=== PATIENT | female | born 1955 | race Caucasian/White ===

== ENCOUNTER 2023-12-16 07:18 | Outpatient (CLI) | payer MEDICARE, SELFPAY ==
--- OUTSIDE RECORDS SUMMARY | 2023-12-16 07:21 | XMS_ITS | Referral Summary ---
Author Name Unknown Organization [facility] Address [address] [facility] [place] [address] Care Team Providers Care County Engineer Name Role Phone Rodolfo Pickett PCA Primary Care Provider [phone] Allergies Active Allergy Reactions Criticality Noted Date Comments No Clinical Screening - See Comments 08/01/2015 [facility] thinks it was the thiamine in the relacore that caused hives Medications Medication Sig Dispensed Refills Start Date End Date Status LEVOTHYROXINE SODIUM PO Take 75 mcg by mouth daily 0 Active citalopram (CELEXA) 20 MG tablet Take 20 mg by mouth daily 0 Active Thiamine HCl (VITAMIN B-1) 50 MG tablet Take 50 mg by mouth daily 0 Active cyclobenzaprine (FLEXERIL) 10 MG tablet Take 10 mg by mouth 3 times daily as needed for muscle spasms 0 Active omeprazole (PRILOSEC) 20 MG capsule Take 20 mg by mouth every other day 0 Active calcium-vitamin D (CALTRATE) 600-400 MG-UNIT per tablet Take 1 tablet by mouth daily 0 Active LORazepam (ATIVAN) 0.5 MG tablet Take 0.5 mg by mouth every 6 hours as needed for anxiety 0 Active amLODIPine (NORVASC) 5 MG tabletIndications:HTN (hypertension) Take 1 tablet (5 mg) by mouth At Bedtime 30 tablet 1 08/09/2015 Active traZODone (DESYREL) 100 MG tablet Take 150 mg by mouth At Bedtime 0 Active budesonide-formoterol (SYMBICORT) 160-4.5 MCG/ACT Inhaler Inhale 2 puffs into the lungs 2 times daily 0 Active cetirizine (ZYRTEC) 10 MG tablet Take 10 mg by mouth every evening 0 Active folic acid (FOLVITE) 1 MG tablet Take 1 mg by mouth daily 0 Active lisinopril-hydrochlor othiazide (ZESTORETIC) 20-12.5 MG tablet Take 1 tablet by mouth daily 0 Active oxybutynin ER (DITROPAN XL) 15 MG 24 hr tablet Take 15 mg by mouth daily 0 Active pregabalin (LYRICA) 75 MG capsule Take 75 mg by mouth 3 times daily 0 Active buPROPion (WELLBUTRIN XL) 300 MG 24 hr tablet Take 300 mg by mouth every morning 0 Active Active Problems Problem Noted Date Diagnosed Date Delirium 02/01/2022 C. difficile colitis 08/09/2015 Acute renal failure (H24) 07/31/2015 CARDIOVASCULAR SCREENING; LDL GOAL LESS THAN 160 01/10/2010 Migraine 04/12/2003 Overview: Problem list name updated by automated process. Provider to review Disturbance in sleep behavior 04/12/2003 Overview: Problem list name updated by automated process. 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 Provider to review Esophageal reflux 04/12/2003 Immunizations Name Administration Dates Next Due Mantoux Tuberculin Skin Test 08/02/2015 TD,PF 7+ (Tenivac) 01/14/2005,12/01/1993 Social History Tobacco Use Types Packs/Day Years Used Date Smoking Tobacco: Former Cigarettes 1 20 Q uit: 12/01/1997 Alcohol Use Standard Drinks/Week Comments Yes 0 (1 standard drink = 0.6 oz pure alcohol) 2-3 8oz glasses of vodka per day Adolescent Education Answer Date Record ed Getting School Help Needed Not on file 08/31 Sex and Gender Information Value Date Recorded Sex Assigned at Not on file Gender Identity Not on file Sexual Orientation Not on file Last Filed Vital Signs Vital Sign Reading Time Taken Comments Blood Pressure 129/77 02/03/2022 10:30 AM LOGISTICS RESEARCH ENGINEER Pulse 58 02/03/2022 7:36 AM LOGISTICS RESEARCH ENGINEER Temperature 36.5 ??C (97.7 ??F) 02/03/2022 7:36 AM CS T Respiratory Rate 16 02/03/2022 7:36 AM LOGISTICS RESEARCH ENGINEER Oxygen Saturation 97% 02/03/2022 7:36 AM LOGISTICS RESEARCH ENGINEER Inhaled Oxygen Concentration - - Weight 63.3 kg (139 lb 9.6 oz) 02/01/2022 6:14 P M LOGISTICS RESEARCH ENGINEER Height 154.9 cm (5' 1) 02/01/2022 6:14 PM LOGISTICS RESEARCH ENGINEER Body Mass Index 26.38 02/01/2022 6:14 PM LOGISTICS RESEARCH ENGINEER Plan of Treatment Not on file Advance Directives For more information, please contact: [phone] Latest Code Status on File Code Status Date Activated Date Inactivated Comments Full Code 02/01/2022 6:14 PM 02/03/2022 2:42 PM All bas ic and advanced life-sustaining interventions are performed as appropriate Question Answer Comments Code status determined by: Discussion with patient/ legal decision maker Code Status History Code Status Date Activated Date Inactivated Comments Full Code 08/09/2015 12:02 PM 02/01/2022 10:51 AM Full Code 07/31/2015 7:49 PM 08/09/2015 12:02 PM Care Teams County Engineer Relationship Specialty Start Date End Date Rodolfo Pickett NP PCP - General Nurse Practitioner 02/13/15
--- OUTSIDE RECORDS SUMMARY | 2023-12-16 07:21 | XMS_ITS | Encounter Summary ---
Author Name Unknown Organization [facility] Address [address], [place] [address] Care Team Providers Care Research Physicist Name Role Phone Annette Wakefield PA-C Primary Care Provider [phone] Reason for Visit * Reason Comments Urinary Frequency Encounter Details Date Type Department Care Team Description 03/13/2023 4:20 PM CDT Office Visit [facility] [address] [place] [address] Anamaria Atkinson, SUPERVISOR COREMAKER, FOAM FABRICATOR [address] [place], [place] [id number] Dysuria Social History Tobacco Use Types Packs/Day Years Used Date Smoking Tobacco: Former Cigarettes 10 0 12/01/1984 - 12/01/1994 Smokeless Tobacco: Never Alcohol Use Standard Drinks/Week Comments Yes 11 (1 standard drink = 0.6 oz pu re alcohol) Sex and Gender Information Value Date Recorded Sex Assigned at Not on file Gender Identity Not on file Sexual Orientation Not on file documented as of this encounter Last Filed Vital Signs Vital Sign Reading Time Taken Comments Blood Pressure 144/81 03/13/2023 3:54 PM CDT Pulse 77 03/13/2023 3:54 PM CDT Temperature 37.1 ??C (98.8 ??F) 03/13/2023 3:54 PM CD T Respiratory Rate 16 03/13/2023 3:54 PM CDT Oxygen Saturation 100% 03/13/2023 3:54 PM CDT Inhaled Oxygen Concentration - - Weight - - Height - - Body Mass Index - - documented in this encounter Progress Notes * DemetrioAnamaria Barrera, TALAT, GREGORIO - 03/13/2023 4:20 PM CDT SUBJECTIVE: Ella Wakefield is a 67 y.o.female who presents to for evaluation of UTI symptoms. The patient states that yesterday she started having dysuria and urinary frequency consistent with past UTIs. She last had a UTI approximately 4 months ago. She denies any fevers, hematuria, nausea vomiting, or newflank pain. Social/Family History, Past Medical/Surgical History, Medications and Allergies have all been reviewed in [facility]. Social History Tobacco Use Smoking status: Former Years: 10.00 Types: Cigarettes Quit date: 12/01/1994 Years since quittin.2 Smokeless tobacco: Never Substance Use Topics Alcohol use: Yes Alcohol/week: 11.0 standard drinks Types: 10 Glasses of wine, 1 Standard drinks or equivalent per week OBJECTIVE: Vital Signs: BP (!) 144/81 (BP Location: Left Arm, BP Cuff Size: Regular - Long) Pulse 77 Temp 37.1 ??C (98.8 ??F) (Oral) Resp 16 SpO2 100% . General: Well developed and nourished. HEENT: Normocephalic. Conjunctiva normal Neck: Supple. Normal ROM. Musculoskeletal: Normal ROM Neurological: Alert and oriented x3. Skin: Warm and dry Psychiatric: Normal mood and affect. Medical Decision Making : Ella Wakefield is a 67 y.o. female presents with symptoms concerning for a urinary tract infection. Urinalysis shows results consistent with UTI. There has been no fever, back/flank pain or significant abdominal pain and there is no clinical evidence/copncern for pyelonephritis or intraabdominal pathology. The patient is appropriate for outpatient management at this timeand will be started on a course of antibiotics. Discharge instructions were reviewed; the patient will return for reevaluation of increasing pain, vomiting, fever, or inability to tolerate the oral antibiotic. Follow up with primary physician is indicated if not improving in 2-3 days. ASSESSMENT: 1. Dysuria LABS: Results for orders placed or performed in visit on 03/13/23 UA with Microscopic: Clean Catch Specimen: Clean Catch; Urine Result Value Ref Range Urine Color Straw Urine Clarity Clear Clear Specific Mingus, Urine 1.010 1.005 - 1.030 PH Urine 7.5 5.0 - 8.0 Protein, Urine Qual (mg/dL) Negative Neg/Trace Glucose Urine Qual (mg/dL) Negative Negative Ketones, Urine (mg/dL) Negative Negative Urobilinogen, Urine (EU/dL) 0.2 <2.0 Bilirubin Urine Negative Negative Blood, Urine Trace Neg/Trace Nitrite Urine Negative Negative Leukocyte Est. Large (A) Negative Red Blood Cells 0-3 0 - 3 /HPF White Blood Cells 51-100 (A) 0 - 5 /HPF Bacteria Few (A) None Seen /HPF Squamous Epithelial Cells Few None Seen, Occasional, Few /HPF Urine Source Clean Catch The patient was discharged ambulatory and in stable condition. Medications Prescribed this Visit Disp Refills Start End cephalexin (KEFLEX) 500 MG capsule 14 Capsule 0 03/13/2023 03/20/2023 Take 1 Capsule (500 mg) by mouth two times a day for 7 days. Oral Discharge Instructions None documented in this encounter Nursing Notes * Brittani Goldman RN - 03/13/2023 4:20 PM CDT Pt reports dysuria, urinary frequency, urgency, cloudy urine starting .yesterday. Denies hematuria;no worsening back pain. documented in this encounter Plan of Treatment Not on file documented as of this encounter Procedures Procedure Name Priority Date/Time Associated Diagnosis Comments URINE CULTURE Routine 03/13/2023 3:45 PM CDT Dysuria UA WITH MICROSCOPIC STAT 03/13/2023 3 :45 PM CDT Dysuria documented in this encounter Results * (ABNORMAL) Urine Culture - Collect in Clinic Today (03/13/2023 3:45 PM CDT) Urine Culture Growth(A) 03/15/2023 9:46 AM CDT [facility] Urine Culture 50,000 - 100,000 CFU/mL Multiple Bacterial Morphotypes 03/15/2023 9:46 AM T [facility] Urine URINE SPECIMEN COLLECTION, CLEAN CATCH / Unknown Non-blood Collection / Unknown 03/13/2023 3:45 PM CDT 03/13/2023 3:53 PM CDT Tonio Garcia [facility] LAB_[id number] [place] [address] * (ABNORMAL) UA with Microscopic: Clean Catch (03/13/2023 3:45 PM CDT) Urine Color Straw 03/13/2023 4:13 PM [facility] Urine Clarity Clear Clear 03/13/2023 4:13 PM [facility] Specific Mingus, Urine 1.010 1.005 - 1.030 03/13/2023 4:13 PM [facility] PH Urine 7.5 5.0 - 8.0 03/13/2023 4:13 PM [facility] Protein, Urine Qual (mg/dL) Negative Neg/Trace 03/13/2023 4:13 PM [facility] Glucose Urine Qual (mg/dL) Negative Negative 03/13/2023 4:13 PM [facility] Ketones, Urine (mg/dL) Negative Negative 03/13/2023 4:13 PM [facility] Urobilinogen, Urine (EU/dL) 0.2 <2.0 03/13/2023 4:13 PM [facility] Bilirubin Urine Negative Negative 03/13/2023 4:13 PM [facility] Blood, Urine Trace Neg/Trace 03/13/2023 4:13 PM [facility] Nitrite Urine Negative Negative 03/13/2023 4:13 PM [facility] Leukocyte Est. Large(A) Negative 03/13/2023 4:13 PM [facility] Red Blood Cells 0-3 0 - 3 /HPF 03/13/2023 4:13 PM [facility] White Blood Cells 51-100(A) 0 - 5 /HPF 03/13/2023 4:13 PM [facility] Bacteria Few(A) None Seen /HPF 03/13/2023 4:13 PM CDT [facility] Squamous Epithelial Cells Few None Seen, Occasional, Few /HPF 03/13/2023 4:13 PM CDT [facility] Urine Source Clean Catch 03/13/2023 4:13 PM CDT [facility] Urine URINE SPECIMEN COLLECTION, CLEAN CATCH / Unknown Non-blood Collection / Unknown 03/13/2023 3:45 PM CDT 03/13/2023 3:53 PM CDT Tonio ERNANDEZ [facility] [address] [place] [address], [facility] [phone] documented in this encounter Visit Diagnoses Diagnosis Dysuria documented in this encounter Care Teams Research Physicist Relationship Specialty Start Date End Date Annette Wakefield PA-C PCP - General Physician Art Display Maker 09/12/21 06/19/23 documented as of this encounter
--- OUTSIDE RECORDS SUMMARY | 2023-12-16 07:21 | XMS_ITS | Encounter Summary ---
Author Name Unknown Organization [facility] Address [address], [place] [address] Care Team Providers Care Chocolate Coater Name Role Phone Annette Wakefield PA-C Primary Care Provider Encounter Details Date Type Department Care Team Description 06/12/2023 1:00 PM CDT Lab Visit [facility] [address] [place] [address] Dysuria Social History Tobacco Use Types Packs/Day [...] on file documented as of this encounter Plan of Treatment Not on file documented as of this encounter Procedures Procedure Name Priority Date/Time Associated Diagnosis Comments CREATININE/GFR, WB POC STAT 06/12/2023 12:52 PM CDT Dysuria documented in this encounter Results * Creatinine/GFR, WB POC (06/12/2023 12:52 PM CDT) Creatinine, Whole Blood 0.8 0.6 - 1.0 mg/dL 06/12/2023 1:01 PM CDT [facility] Performing Location LAB [facility] 06/12/2023 1:01 PM CDT [facility] GFR, Estimated >60 >60 mL/min/1.7 3m2 06/12/2023 1:01 PM CDT [facility] Blood Venipuncture / Unknown 06/12/2023 12:52 PM CDT 06/12/2023 12:54 PM CDT Brandi Mosquera PA-C LAB_[address] [facility] [address] [place] [address], [facility] [phone] documented in this encounter Visit Diagnoses Diagnosis Dysuria documented in this encounter Care Teams Chocolate Coater Relationship Specialty Start Date End Date Annette Wakefield PA-C PCP - General Physician Truss Driver Helper 09/12/21 06/19/23 documented as of this encounter
--- OUTSIDE RECORDS SUMMARY | 2023-12-16 07:21 | XMS_ITS | Clinical Summary ---
Author Name Unknown Organization [facility] Address [place], [place] [address] Care Team Providers Care 4 Year Olds Preschool Teacher Name Role Phone Annette Wakefield Primary Care Provider [phone] Allergies No known active allergies Medications Medication Sig Dispensed Refills Start Date End Date Status guaiFENesin (Mucinex) 600 mg Extended-Release tabletIndications:C ough Take 1 Tablet (600 mg) by mouth 2 times daily if needed for Expectoration. 60 Tablet 1 2 Active nystatin-triamcinol one (MYCOLOG) creamIndications:Va ginal irritation APPLY CREAM EXTERNALLY TO AFFECTED AREA TWICE DAILY TO LABIA AND RECTAL AREA 60 g 0 2 Active diclofenac topical (VOLTAREN) 1 % gelIndications:Arth ralgia, unspecified joint Apply 4 g topically to affected area(s) 4 times daily. 450 g 1 2 Active triamcinolone (ARISTOCORT) 0.1 % ointmentIndications :Acute eczema Apply topically to affected area(s) two times daily. 80 g 1 2 Active thiamine (VITAMIN B1) 50 mg tabletIndications:T hiamine deficiency Take 1 Tablet (50 mg) by mouth once daily. 90 Tablet 3 2 Active fluocinonide 0.05% topical (LIDEX) 0.05 % creamIndications:Ra sh Apply topically to affected area(s) two times daily. 60 g 1 2 Active Calcium-Cholecalcif arielle, D3, 600 mg-10 mcg (400 unit) capIndications:Belinda min D deficiency Take 1 Tablet by mouth once daily. 90 Capsule 3 3 Active ondansetron (ZOFRAN ODT) 4 mg disintegrating tabletIndications:N ausea and vomiting, unspecified vomiting type Place 1 Tablet (4 mg) on the tongue every 8 hours if needed for Nausea/Vomiting . 30 Tablet 0 3 Active folic acid 1 mg tabletIndications:F olic acid deficiency Take 1 tablet by mouth once daily 90 Tablet 1 3 Active celecoxib (CELEBREX) 200 mg capsule Take 200 mg by mouth 2 times daily if needed. 0 3 Active cyclobenzaprine (FLEXERIL) 10 mg tabletIndications:C hronic bilateral low back pain, unspecified whether sciatica present Take 1 Tablet (10 mg) by mouth 3 times daily if needed for Muscle Spasm. 60 Tablet 2 3 Active atorvastatin (LIPITOR) 20 mg tabletIndications:M ixed hyperlipidemia Take 1 Tablet (20 mg) by mouth once daily. 90 Tablet 3 3 Active buPROPion (WELLBUTRIN XL) 300 mg Extended-Release tabletIndications:D epression, unspecified depression type Take 1 Tablet (300 mg) by mouth once daily. 90 Tablet 3 3 Active gabapentin (NEURONTIN) 300 mg capsuleIndications: Other polyneuropathy Take 2 Capsules (600 mg) by mouth three times daily. 540 Capsule 3 3 Active levothyroxine (SYNTHROID) 75 mcg tabletIndications:T hyroid disorder Take 1 Tablet (75 mcg) by mouth before breakfast. 90 Tablet 3 3 Active lisinopril-hydrochl orothiazide 20-12.5 mg tablet (PRINZIDE)Indicatio ns:HTN (hypertension) Take 1 Tablet by mouth once daily. 90 Tablet 3 3 Active omeprazole (PRILOSEC) 20 mg Delayed-Release capsuleIndications: Diaphragmatic hernia without obstruction and without gangrene Take 1 Capsule (20 mg) by mouth once daily if needed for GI Upset. 90 Capsule 3 3 Active traZODone (DESYREL) 150 mg tabletIndications:P rimary insomnia Take 2 Tablets (300 mg) by mouth at bedtime. 180 Tablet 3 3 Active metoprolol tartrate (LOPRESSOR) 50 mg tabletIndications:H TN (hypertension) Take 1 Tablet (50 mg) by mouth two times daily. 180 Tablet 3 3 Active amLODIPine (NORVASC) 5 mg tabletIndications:H TN (hypertension) Take 1 Tablet (5 mg) by mouth once daily. 30 Tablet 1 3 Active LORazepam (ATIVAN) 0.5 mg tabIndications:DAVID (generalized anxiety disorder) Take 1 Tablet (0.5 mg) by mouth once daily if needed for Anxiety. 30 Tablet 2 4 Active LORazepam (ATIVAN) 0.5 mg tabIndications:DAVID (generalized anxiety disorder) Take 1 Tablet (0.5 mg) by mouth once daily if needed for Anxiety. 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 Treating with panoxyl feet wash and triamcinolone on the skin lesions Tubular adenoma 02/17/2017 Overview: 1 tubular adenoma and hyperplastic polyp. She should do split prep dosing. Recommend MAC for future colonoscopies. Neuropathy, peripheral 06/21/2013 Anxiety 08/26/2012 Depression 08/26/2012 Dysfunctional alcohol use 02/08/2011 Back pain, chronic 07/25/2010 Vitamin D deficiency 07/25/2010 Unspecified hypothyroidism 10/27/2009 Viral warts, unspecified 01/30/2009 HTN (hypertension) 08/19/2008 Migraine, unspecified, witho ut mention of intractable migraine without mention of status migrainosus 03/05/2007 Insomnia, unspecified 03/05/2007 Overview: amitriptyline Esophageal reflux 03/05/2007 Adjustment disorder with depressed mood 03/05/20 07 Diaphragmatic hernia 04/12/2003 Resolved Problems Problem Noted Date Diagnosed Date Resolved Date Sore throat 11/26/2021 03/14/2022 Pneumonia of right lower lob e due to infectious organism 12/30/2019 01/28/2020 S/P foot surgery, left 12/30/201903/14 Infection of superficial inc isional surgical site after procedure 12/30/2019 11/18/2021 Influenza-like illness 12/12/201911/18 Hypoxia 12/12/2019 11/18/2021 Iron deficiency anemia 08/22/201503/14 Acute kidney failure 08/22/2015 022 Vitamin D deficiency 02/12/2012 012 Alcohol abuse, unspecified 10/23/2011 1 12/23/2010 Hypokalemia 12/23/2010 03/14/2022 Chronic low back pain 07/25/20102021 Overview: 07/25/10 narcotic agreement signed/tramdol , 20 tab a month, [facility] Elevated liver enzymes 06/09/201003/14 Thyroid disorder 10/23/2009 03/14/2022 Closed fracture of unspecifi ed part of humerus 08/17/2008 03/14/2022 Disturbance in sleep behavior 04/12/2003 03/14/2022 Encounters Date Type Department Care Team Description 12/10/2023 Telephone [facility] [address] [place] [address] Annette Wakefield PA Questions 12/02/2023 Telephone [facility] [address] [place] [address] Annette Wakefield PA Medication Management 12/02/2023 Refill [facility] [address] [place] [address] Annette Wakefield PA Refill Request (Lorazepam) 11/12/2023 3:00 PM CAREER COACH Office Visit [facility] [address] [place] [address] Onesimo Madrid MD Musculoskeletal Problem (Follow up back pain ) 11/11/2023 4:00 PM CAREER COACH Ancillary Procedure [facility] [address] [place] [address] 11/11/2023 3:30 PM CAREER COACH Ancillary Procedure [facility] [address] [place] [address] 11/11/2023 Travel 10/14/2023 3:15 PM CAREER COACH Office Visit [facility] [address] [place] [address] Ashley Mobley PA Blood Pressure 10/14/2023 Travel 10/14/2023 Telephone [facility] [address] [place] [address] Ashley Mobley PA Appointment 10/08/2023 Nurse Triage [facility] [address] [place] [address] Annette Wakefield PA High Blood Pressure 10/01/2023 Telephone [facility] [address] [place] [address] Annette Wakefield PA Questions 09/30/2023 3:30 PM CDT Office Visit [facility] [address] [place] [address] Annette Wakefield PA Medicare FIRST ANNUAL Visit 09/30/2023 Travel 09/16/[address] [address] Annette Wakefield PA Refill Request (Folic Acid) from Last 3 Months Immunizations Name Administration Dates Next Due COVID-19 Vaccine Spikevax (Parul kramer 50mcg/0.5mL) 12YO+ 2511-3576 Formula PF 09/30/2023 COVID-19 vaccine (Ste[employer] NTech 30mcg/0.3mL) 12YO+ BIVALENT PF, MDV 09/26/2022 COVID-19 vaccine ([employer]-Bio NTech 30mcg/0.3mL) PF, MDV 12/13/2021,03/06/2021,02/13/2021 HepA-HepB (Twinrix) 01/15/2019,02/10/2012 Hepatitis B (Adult) 11/06/2017,02/17/2017,2011 Influenza Virus, Unspecified 01/04/2011, 10/04/2009,10/05/2008,1994 Influenza, IIV3 (Age 6-35 mos) 10/21/2017,2010 Influenza, IIV3 (Age >=3 years) 08/26/20 12,10/09/2011,01/04/2011,2008,10/05/2008 Influenza, IIV4 10/19/2021, 0,09/16/2019,2018,10/21/2017,10/08/2016,10/24/2015,0 08/11/2014,10/09/2011,01/04/2011, 009,10/05/2008 Influenza, Inactivated AIIV4 (Age 65+ Years) Preserv Free 09/30/2023 Td (Age >=7 Years) 03/05/2006,01/14/2005, 994 Td, Preservative Free (age > = 7 Years) 01/14/2005,12/01/1993 Tdap 08/11/2014 Tuberculin (PPD) 08/02/2015 Zoster (Shingrix-RZV, recombinant) 02/08/2022, Zoster (Zostavax-ZVL, live) 01/16/2016 Family History Medical History Relation Name Comments Cancer Brother lung, kidney Cancer-ovarian Daughter Heart Disease Maternal Aunt [place] Lung cancer Mother Heart Disease Paternal Grandfather [place] Heart Disease Paternal Grandmother [place] Diabetes Paternal Uncle Alcohol/Drug Sister 1 alcohol and emilee gs Alcohol/Drug Sister 2 alcohol and emilee gs Cancer-breast No Family History Relation Name Status Comments Brother Alive Daughter Father Alive Maternal Aunt Maternal Grandfather Maternal Grandmother Mother Paternal Grandfather Paternal Grandmother Paternal Uncle Sister 1 Alive Sister 2 Alive Social History Tobacco Use Types Packs/Day Years Used Date Smoking Tobacco: Former Smokeless Tobacco: Never Tobacco Cessation:Counseling Given: Yes Comments:Pt quit 40 years ago Alcohol Use Standard Drinks/Week Comments Yes 0 (1 standard drink = 0.6 oz pur e alcohol) 3-4 per week PHQ-2 Answer Date Recorded PHQ-2 TOTAL SCORE 1 09/30/2023 Social Connections Answer Date Recorded Frequency of Communication with Friends and Fami ly Not on file 03/16/2023 Financial Resource Strain Answer Date R ecorded Difficulty of Paying Living Expenses 3 03/14/2022 Difficulty of Paying Living Expenses Not on file 03/14/2022 Food Insecurity Answer Date Recorded Worried About Running Out of Food in the Last Ye ar 1 03/14/2022 Transportation Needs Answer Date Record ed Lack of Transportation (Medical) 1 03/14/2022 Housing Stability Answer Date Recorded Unable to Pay for Housing in the Last Year 1 03/14/2022 Sex and Gender Information Value Date Recorded Sex Assigned at Not on file Gender Identity Not on file Sexual Orientation Not on file Obstetrics History Para Term AB IAB SAB Ectopic Multiple Livin g Live Births 2 2 2 0 0 0 0 0 2 Date Outcome GA Total Labor Labor/2nd/3rd Weight Sex Delivery Anes PTL Shawna A1 A5 Name Cl in Term Term Last Filed Vital Signs Vital Sign Reading Time Taken Comments Blood Pressure 143/80 11/12/2023 3:03 PM CAREER COACH Pulse 61 11/12/2023 3:03 PM CAREER COACH Temperature 37 ??C (98.6 ??F) 11/12/2023 3:03 PM CAREER COACH Respiratory Rate 18 09/24/2022 5:00 AM CDT Oxygen Saturation 98% 11/12/2023 3:03 PM CAREER COACH Inhaled Oxygen Concentration - - Weight 64.4 kg (142 lb) 11/12/2023 3:03 PM CAREER COACH Height 152.6 cm (5' 0.08) 09/30/2023 3:19 PM CD T Body Mass Index 27.66 09/30/2023 3:19 PM CDT Plan of Treatment Upcoming Encounters Date Type Department Care Team (Late st Contact Info) Description 12/16/2023 8:00 AM CAREER COACH Office Visit [facility] [address] [facility] [phone] Onesimo Madrid MD [address] [place] [address] 01/29/2024 10:00 AM CAREER COACH Office Visit [facility] [address] [place] [address] Onesimo Madrid MD [address] [place] [address] Health Maintenance Due Date Last Done Comments Pneumococcal series for age 65+ (1 of 2 - PCV) 1963 Tetanus booster 08/11/2024 08/11/2014, 04/03/2006, 01/14/2005, Additional history exists Medicare Wellness for age 65+ 09/29/2024 09/30/2023 BMI (ht and wt on same day) for age 18+ 09/30/2024 09/30/2023, 01/21/2023, 04/15/2022, Additional history exists Depression screening for age 12+ 10/01/2024 10/01/2023, 09/30/2023, 03/14/2022 Mammogram for age 45-75 11/11/2024 11/11/20, 04/15/2022, 10/19/2020 (Completed outside of [facility]), Additional history exists Lipids for age 45-75 09/30/2028 09/30/2023, 09/30/2023, 03/14/2022, Additional history exists Colonoscopy through age 75 02/27/203102/27, 12/18/2015 (Completed outside of [facility]) Hepatitis C screening for ag e 18-79 Completed 10/23/2011, 10/19/2009 Tdap Completed 08/11/2014 Zoster (shingles) series for age 50+ Completed 02/08/2022, 10/19/2021, 01/16/2016 COVID-19 vaccine series Completed 09/30/20, 09/26/2022, 12/13/2021, Additional history exists Influenza for age 65+ Completed 09/30/2023 , 10/19/2021, 10/03/2020, Additional history exists DEXA/DXA scan for age 65+ Completed 11/11/2023 Medical Devices Implanted Type Area Industrial Machine System Technician Device Identifier Shelf Expiration Date Model / Serial / Lot Comprehensive Foot System 2.4mm Low Profile Plates, Straight 5 Holes Implanted:Qty: 2 on 12/27/2019 by Domo Barnes DPM at [facility] Left: Toe [employer] [id number] - 05 / / Description:2ND AND 3RD TOES Comprehensive Foot System 2.4mm Low Profile Screws, Lockin, Cortex Implanted:Qty: 4 on 12/27/2019 by Domo Barnes DPM at [facility] Left: Toe [employer] [id number] 2 / / Description:3RD TOE x 2 2ND TOE x 2 Comprehensive Foot System 2.4mm Low Profile Screws, Lockin, Cortex Implanted:Qty: 4 on 12/27/2019 by Domo Barnes DPM at [facility] Left: Toe [employer] [id number] 4 / / Description:3RD TOE x 2 2ND TOE x 2 Procedures Procedure Name Priority Date/Time Associated Diagnosis Comments XR MAMMO BILAT SCREENING Routine 11/11/2023 4:10 PM CAREER COACH Encounter for screening mammogram for malignant neoplasm of breast XR DXA BONE DENSITY 2 SITES AXIAL Routine 11/11/2023 3:43 PM CAREER COACH Postmenopausal BASIC METABOLIC PANEL Routine 10/14/2023 3:46 PM CAREER COACH Hypercalcemia LDL CHOLESTEROL,DIRECT Routine 09/30/2023 4:21 PM CDT Mixed hyperlipidemia TSH Routine 09/30/2023 4:21 PM CDT Hypothyroidism, unspecified type HEMOGLOBIN A1C SCREENING Routine 09/30/2023 4:21 PM CDT Hyperglycemia COMP METABOLIC PANEL Routine 09/30/2023 4:21 PM CDT HTN (hypertension) LIPID PANEL W REFLEX MEASURED LDL Routine 09/30/2023 4:21 PM CDT Mixed hyperlipidemia from Last 3 Months Results * XR MAMMO BILAT SCREENING (11/11/2023 4:10 PM CAREER COACH) Anatomical Region Laterality Modality BREASTS, Breast Left, Breast Right Bilateral Mammography Impressions 11/12/2023 3:42 PM CAREER COACH ??There is no radiographic evidence for malignancy. ??Recommend annual mammograms. MAMMOGRAM ASSESSMENT: ??ACR 1 Negative PATIENTS: You will also receive a letter with your examination results in an easy to read format. ??If you have questions about your results, please contact your referring provider. Narrative 11/12/2023 3:42 PM CAREER COACH For Patients: As a result of the Century Cures Act, medical imaging exams and procedure reports are released immediately into your electronic medical record. You may view this report before your referring provider. If you have questions, please contact your health care provider. XR MAMMO BILAT SCREENING [[id number]] CLINICAL HISTORY: ??This is an asymptomatic 68 y.o. patient. INDICATION FOR EXAM: Mammogram Screening. TECHNIQUE: CC & MLO views were obtained. ??This study was evaluated with the assistance of Computer-Aided Detection. COMPARISON FILM: Yes 04/15/22 [employer] [facility] 10/19/20 [employer] FINDINGS: ??The breasts have scattered areas of fibroglandular density. There are no dominant masses, suspicious micro calcifications or areas of architectural distortion. Annette CORBIN MAMMO * (ABNORMAL) XR DXA BONE DENSITY 2 SITES AXIAL (11/11/2023 3:43 PM CAREER COACH) Anatomical Region Laterality Modality Spine, HIPS, HIPL, HIPR Other Impressions 11/19/2023 7:30 AM CAREER COACH Osteopenia. RECOMMENDATIONS: The National Osteoporosis Foundation recommends pharmacologic treatment for patients with T-scores of -2.5 or less, patients with prior history of fragility fractures, or patients with 10-year probability of greater than 3% at hips or greater than 20% of suffering major osteoporotic fractures. Recommend continued optimization of calcium and vitamin D intake through dietary means and/or supplementation and regular exercise. Repeat scan recommended in 3-5 years. Kasandra Ramirez PA-C [facility] 11/19/2023 Narrative 11/19/2023 7:30 AM CAREER COACH For Patients: Results are automatically released to your [facility] ([facility]) account once available, in compliance with federal regulations. This means that you may see your results before your provider has had a chance to review them. Please allow 2-3 business days for your provider to comment on the results. XR DXA Bone Mineral Density (BMD) EXAM LOCATION: [address] [address] PATIENT NAME: Ella Wakefield DATE OF : 1955 EXAM DATE: 11/11/2023 REQUESTING PROVIDER: Annette Wakefield PA GENDER AT : female HEIGHT: 5' 0.08 (09/30/2023) WEIGHT: ??140 lb 12.8 oz (10/14/2023) MENOPAUSAL STATUS: Postmenopausal RACE/ETHNICITY: White RISK FACTORS: Alcohol > 3 drinks/day (current), Alcohol > 3 drinks/day (prior), Smoking (prior), and White Race CURRENT MEDICATION FOR BONE LOSS: NONE INDICATION: Post-Menopause COMPARISON DATE(S): None DXA scans are compared to prior studies for a patient only when the two (or more) studies were performed on the same scanner. It is not possible to compare data generated on one scanner to data from another because there are not standards in DXA equipment. This applies even if the two scanners are made by the same credit union field examiner. PROCEDURE: Dual-energy x-ray absorptiometry performed with routine technique. Reporting is completed in the form of a T-score. The T-score represents the standard deviation from peak bone mass based on young healthy adult. A Z-score is used for diagnosis in premenopausal women, and for men under the age of 50. FINDINGS: RESULT LUMBAR SPINE L1 - L4 BMD: 1.138 g/cm2 T-Score: - 0.5 Z-Score: + 1.2 Change from prior: ??None RESULTS FEMUR Left femoral neck BMD: 0.794 g/cm2 T-Score: - 1.8 Z-Score: - 0.2 Change from prior: ??None Right femoral neck BMD: 0.827 g/cm2 T-Score: - 1.5 Z-Score: + 0.0 Change from prior: ??None Left hip BMD: 0.843 g/cm2 T-Score: - 1.3 Z-Score: + 0.0 Change from prior: ??None Right hip BMD: 0.882 g/cm2 T-Score: - 1.0 Z-Score: + 0.3 Change from prior: ??None WHO criteria: Normal: T-score at or above -1 SD Osteopenia: T-score between -1.1 and -2.4 SD Osteoporosis: T-score at or below -2.5 SD FRAX RISK CALCULATION (USED FOR OSTEOPENIA ONLY): 10-year probability of major osteoporotic fracture: 12.1%. 10-year probability of hip fracture: 2.0%. Annette CORBIN DEXA * (ABNORMAL) BASIC METABOLIC PANEL (10/14/2023 3:46 PM CAREER COACH) [facility] SODIUM 139 136 - 145 mmol/L 10/15/2023 2:38 PM [facility] POTASSIUM 4.2 3.5 - 5.1 mmol/L 10/15/2023 2:38 PM [facility] CHLORIDE 99 98 - 107 mmol/L 10/15/2023 2:38 PM [facility] CO2,TOTAL 27 22 - 29 mmol/L 10/15/2023 2:38 PM CAREER COACH [facility] ANION GAP 13 5 - 18 10/15/2023 2:38 PM [facility] GLUCOSE 105(H) 70 - 99 mg/dL 10/15/2023 2:38 PM [facility] CALCIUM 9.4 8.8 - 10.2 mg/dL 10/15/2023 2:38 PM [facility] BUN 21 8 - 23 mg/dL 10/15/2023 2:38 PM CAREER COACH [facility] CREATININE 0.84 0.50 - 0.90 mg/dL 10/15/2023 2:38 PM CAREER COACH [facility] BUN/CREAT RATIO 25(H) 10 - 20 2:38 PM CAREER COACH [facility] eGFR 77(L) >90 mL/min/1.7 3m2 10/15/2023 2:38 PM CAREER COACH [facility] Comment:As of 2022, eG FR is calculated by the CKD-EPI creatinine equation without race adjustment. ??eGFR can be influenced by muscle mass, exercise, and diet. ??The reported eGFR is an estimation only and is only applicable if the renal function is stable. Blood BLOOD SPECIMEN / Unknown Venipuncture / Unknown 10/14/2023 3:46 PM CAREER COACH 10/14/2023 3:47 PM CAREER COACH Annette CORBIN CHEMISTRY [facility] [address] [place] [address], * HEMOGLOBIN A1C SCREENING (09/30/2023 4:21 PM CDT) HEMOGLOBIN A1C SCREENING 5.2 <=6.4 % 10/01/2023 2:08 PM CDT [facility] Blood BLOOD SPECIMEN / Unknown Venipuncture / Unknown 09/30/2023 4:21 PM CDT 09/30/2023 4:22 PM CDT Narrative [facility] - 10/01/2023 2:08 PM CDT ? (<5.7%) ?Normal ? (5.7% to 6.4%) ? Indicates prediabetes ? (>=6.5%) ? Confirms diabetes Falsely low levels may be seen with: Recent Transfusion, Recent Significant Blood Loss, Hemolytic Diseases, or Falsely elevated levels may be seen with: Untreated Anemias, Splenectomy Annette CORBIN CHEMISTRY [facility] [address] [place] [address], * (ABNORMAL) LIPID PANEL W REFLEX MEASURED LDL (09/30/2023 4:21 PM CDT) CHOLESTEROL,TOTAL 270(H) 100 - 199 mg/dL 10/01/2023 2:01 PM CDT [facility] Comment: Cholesterol, Total Reference Ranges Desirable <200 mg/dL Borderline 200-239 mg/dL High >=240 mg/dL TRIGLYCERIDES 470(H) <150 mg/dL 10/01/2023 2:01 PM CDT [facility] HDL CHOLESTEROL 76 >40 mg/dL 3 2:01 PM CDT [facility] NON-HDL CHOLESTEROL 194(H) <145 mg/dl 10/01/2023 2:01 PM CDT [facility] CHOL/HDL RATIO 3.55 <4.50 10/01/2023 2:01 PM CDT [facility] LDL CHOLESTEROL 3 2:01 PM CDT [facility] Comment:Invalid LDL when Tri g >400. VLDL CHOLESTEROL COMMENT 10/01/2023 2:01 PM CDT [facility] Comment:Unable to calculate VLDL. PROVIDER ORDERED STATUS RANDOM 10/01/2023 2:01 PM CDT [facility] Blood BLOOD SPECIMEN / Unknown Venipuncture / Unknown 09/30/2023 4:21 PM CDT 09/30/2023 4:22 PM CDT Annette CORBIN CHEMISTRY [facility] [address] [place] [address], [place] * TSH (09/30/2023 4:21 PM CDT) TSH 2.17 0.27 - 4.20 uIU/mL 10/01/2023 2:01 PM CDT [facility] Blood BLOOD SPECIMEN / Unknown Venipuncture / Unknown 09/30/2023 4:21 PM CDT 09/30/2023 4:22 PM CDT Narrative [facility] - 10/01/2023 2:01 PM CDT In Adults, TSH values between 5.00 and 10.00 uIU/ml do not necessarily indicate the presence of Hypothyroidism. Correlation with clinical findings such as presence of goiter and/or Thyroperoxidase (TPO) Antibody may be helpful. For more information please refer to BOY 2004; 291: 228-238. Annette CORBIN CHEMISTRY Performing Organization Address [facility] de Phone Number [facility] [address] [address], * LDL CHOLESTEROL,DIRECT (09/30/2023 4:21 PM CDT) Pathologist [facility] LDL CHOLESTEROL,DI RECT 147 mg/dL 10/01/2023 2:34 PM CDT [facility] PROVIDER ORDERED STATUS RANDOM 10/01/2023 2:34 PM CDT [facility] Blood BLOOD SPECIMEN / Unknown Venipuncture / Unknown 09/30/2023 4:21 PM CDT 09/30/2023 4:22 PM CDT Narrative [facility] - 10/01/2023 2:34 PM CDT Optimal ?<100 mg/dl Near Optimal ?100-129 mg/dl Borderline High ?? 130-159 mg/dl High ?160-189 mg/dl Very High ? >=190 mg/dl Annette CORBIN CHEMISTRY Performing Organization Address [facility] Co de Phone Number [facility] [address] [place] [address], [place] * (ABNORMAL) COMP METABOLIC PANEL (09/30/2023 4:21 PM CDT) [facility] SODIUM 139 136 - 145 mmol/L 10/01/2023 2:01 PM T [facility] POTASSIUM 4.2 3.5 - 5.1 mmol/L 10/01/2023 2:01 PM T [facility] CHLORIDE 97(L) 98 - 107 mmol/L 10/01/2023 2:01 PM T [facility] CO2,TOTAL 29 22 - 29 mmol/L 10/01/2023 2:01 PM T [facility] ANION GAP 13 5 - 18 10/01/2023 2:01 PM T [facility] GLUCOSE 96 70 - 99 mg/dL 10/01/2023 2:01 PM [facility] CALCIUM 10.6(H) 8.8 - 10.2 mg/dL 10/01/2023 2:01 PM T [facility] BUN 16 8 - 23 mg/dL 10/01/2023 2:01 PM [facility] CREATININE 0.81 0.50 - 0.90 mg/dL 10/01/2023 2:01 PM [facility] BUN/CREAT RATIO 20 10 - 20 2:01 PM [facility] eGFR 80(L) >90 mL/min/1.7 3m2 10/01/2023 2:01 PM T [facility] Comment:As of 2022, eG FR is calculated by the CKD-EPI creatinine equation without race adjustment. ??eGFR can be influenced by muscle mass, exercise, and diet. ??The reported eGFR is an estimation only and is only applicable if the renal function is stable. ALBUMIN 4.9 4.0 - 4.9 g/dL 10/01/2023 2:01 PM CDT [facility] PROTEIN,TOTAL 7.8 6.0 - 8.0 g/dL 10/01/2023 2:01 PM CDT [facility] BILIRUBIN,TOTAL 0.2 0.0 - 1.2 mg/dL 10/01/2023 2:01 PM CDT [facility] ALK PHOSPHATASE 89 35 - 104 IU/L 10/01/2023 2:01 PM CDT [facility] ALT (SGPT) 19 10 - 35 IU/L 10/01/2023 2:01 PM CDT [facility] AST (SGOT) 21 10 - 35 IU/L 10/01/2023 2:01 PM CDT [facility] Blood BLOOD SPECIMEN / Unknown Venipuncture / Unknown 09/30/2023 4:21 PM CDT 09/30/2023 4:22 PM CDT Annette CORBIN CHEMISTRY Performing Organization Address City/State/[facility] Co de Phone Number [facility] [address] [place] [address], [place] from Last 3 Months Advance Directives Latest Code Status on File Code Status Date Activated Date Inactivated Comments Full Code 02/27/2021 7:46 AM 02/27/2021 12:09 PM Question Answer Comments Code Status Discussion: Discussed Code Status History Code Status Date Activated Date Inactivated Comments Full Code 12/30/2019 7:36 PM 12/31/2019 1:03 PM Question Answer Comments Code Status Discussion: Discussed Full Code 12/27/2019 10:47 AM 12/28/2019 2:29 AM Question Answer Comments Code Status Discussion: Discussed Full Code 12/27/2019 10:47 AM 12/27/2019 10:47 AM Question Answer Comments Code Status Discussion: Discussed Full Code 12/12/2019 6:50 PM 12/13/2019 4:20 PM Question Answer Comments Code Status Discussion: Not Discussed Care Teams 4 Year Olds Preschool Teacher Relationship Specialty Start Date End Date Annette Wakefield PA [address] [place] [address] PCP - General Physician Plaster Applicator 09/04/23
--- OUTSIDE RECORDS SUMMARY | 2023-12-16 07:21 | XMS_ITS | Encounter Summary ---
Author Name Unknown Organization [facility] Address [address], [place] [address] Care Team Providers Care Loading Unit Tool Setter Name Role Phone Needs Pcp, Assignment Primary Care Provider Reason for Visit * Reason Comments Medication Request Encounter Details Date Type Department Care Team Description 06/19/2023 Telephone [facility] [address] [place], [place] [address] Needs Pcp, Assignment [place], [place] [id number] Medication Request Social History Tobacco Use Types Packs/Day Years [...] on file documented as of this encounter Nursing Notes * Ellen Lopez RN - 06/20/2023 5:50 PM CDT RN spoke with the patient, and they verbalized understanding of this result and message from MAY Daley. Patient reports symptoms did not completely resolve on Abx and have now recurred, RN advised re-evaluation in office or UC. Patient verbalized understanding and agreement. Treatment plan has been discussed with patient, follow-up recommendations along with indications that would require urgent evaluation reviewed. * Brittani Moses RN - 06/20/2023 9:33 AM CDT RN attempted to contact the patient and LMTCB to [phone]. * Kandi Rubi RN - 06/19/2023 3:01 PM CDT RN attempted to contact the patient and LMTCB to [phone]. Per Nisha Mosquera PA-C note on 06/12- If it shows normal yvon, continue antibiotics only if symptoms have improved. If not improving, recheck with primary care for further evaluation. * Yu Savage - 06/19/2023 1:57 PM CDT Medications - Med Change / Question Is this a medication change or a general question? Med Change What is the name and dose of the current medication? sulfamethoxazole-trimethoprim (BACTRIM DS) 800-160 MG tablet Do you know what medication/dosage you would like to change to? (If yes, what is the medication name/dosage?) No Why do you need to change medication/dosage? Still having urinary symptoms How often do you take it? On file Who prescribed it? nisha Mosquera Additional comments (related to the above concern): For this medication, patient would like it filled at the pharmacy listed in Medication Management. Is it okay to leave a detailed message on your voicemail? Yes Is there anything else I can help you with today? documented in this encounter Plan of Treatment Not on file documented as of this encounter Visit Diagnoses Not on filedocumented in this encounter Care Teams Loading Unit Tool Setter Relationship Specialty Start Date End Date Needs Pcp, [place] [address] PCP - General 06/20/23 documented as of this encounter
--- OUTSIDE RECORDS SUMMARY | 2023-12-16 07:21 | XMS_ITS | Encounter Summary ---
Author Name Unknown Organization [facility] Address [address], [place] [address] Care Team Providers Care Hand Woodworking Sander Name Role Phone Needs Pcp, Assignment Primary Care Provider [phone] Reason for Visit * Reason Comments Medication Questions UTI Encounter Details Date Type Department Care Team Description 06/20/2023 Nurse Triage [facility] [address] [place], [place] [address] Needs Pcp, Assignment [place], [place] [address] Medication Questions; UTI Social History Tobacco Use Types Packs/Day Years [...] as of this encounter Nursing Notes * May Schultz, RN - 06/20/2023 11:50 AM CDT Spoke with patient, seen in urgent care on for UTI. She has one pill left and continues tohave pain and burning with urination.Drinking a lot of water. Feels like these symptoms are not going away Denies fever or blood in urine Problem list reviewed as related to this call. Reason for Disposition Taking antibiotic > 3 days for UTI and painful urination not improved Protocols used: Urination Pain - Cefikr-[id number]-HD * Gely Blunt RN - 06/20/2023 10:32 AM CDT Left message to call back [phone]. Per last visit: If it shows normal yvon, continue antibiotics only if symptoms have improved. If not improving, recheck with primary care for further evaluation. * Yoselyn Pradhan - 06/20/2023 10:06 AM CDT Medications - Med Change / Question Is this a medication change or a general question? Med Question What is your question or concern? Pt missed 2 calls from RN and she is calling back. She would still like to talk to someone about the medication that was given to treat the UTI it is not helping. Please look at last telephone note 06/19-06/20. What is the name and dose of the medication? sulfamethoxazole-trimethoprim (BACTRIM DS) How often do you take it? 800-160 MG tablet Who prescribed it? Brandi Mosquera PA-C If a prescription is needed, patient would like it filled at the pharmacy listed in Medication Management. Is it okay to leave a detailed message on your voicemail? Yes Is there anything else I can help you with today? documented in this encounter Plan of Treatment Not on file documented as of this encounter Visit Diagnoses Not on filedocumented in this encounter Care Teams Hand Woodworking Sander Relationship Specialty Start Date End Date Needs Pcp, [place] [address] PCP - General 06/20/23 documented as of this encounter
--- OUTSIDE RECORDS SUMMARY | 2023-12-16 07:21 | XMS_ITS | Clinical Summary ---
Author Name Unknown Organization [facility] Address [facility] [place] [address] Care Team Providers Care Straddle Buggy Operator Name Role Phone Rodolfo Pickett YARN INSPECTOR Primary Care Provider [phone] Allergies Active Allergy Reactions Criticality Noted Date [...] Skin Test 08/02/2015 TD,PF 7+ (Tenivac) 01/14/2005,12/01/1993 Family History Medical History Relation Comments Gastrointestinal Disease Father colonic polyps C.A.D. Maternal Aunt in 40's C.A.D. Maternal Grandfather in 50's Hypertension Maternal Grandmother Hypertension Mother Hypertension Sister 3 Lipids Sister 4 Thyroid Disease Sister 5 goiter Relation Status Comments Brother Alive Daughter 1 Alive Daughter 2 Alive Father Alive Maternal Aunt Maternal Grandfather Maternal Grandmother Mother Alive Sister 1 Alive Sister 2 Alive Sister 3 Sister 4 Sister 5 Social History Tobacco Use Types Packs/Day Years [...] Comments Blood Pressure 129/77 02/03/2022 10:30 AM COAL TRIMMER Pulse 58 02/03/2022 7:36 AM COAL TRIMMER Temperature 36.5 ??C (97.7 ??F) 02/03/2022 7:36 AM CS T Respiratory Rate 16 02/03/2022 7:36 AM COAL TRIMMER Oxygen Saturation 97% 02/03/2022 7:36 AM COAL TRIMMER Inhaled Oxygen Concentration - - Weight 63.3 kg (139 lb 9.6 oz) 02/01/2022 6:14 P M COAL TRIMMER Height 154.9 cm (5' 1) 02/01/2022 6:14 PM COAL TRIMMER Body Mass Index 26.38 02/01/2022 6:14 PM COAL TRIMMER Plan of Treatment Health Maintenance Due Date Last Done Comments ADVANCE CARE PLANNING 1955 ANNUAL REVIEW OF HM ORDERS 1957 CT COLONOGRAPHY 1957 DEXA 1957 FIT 1957 FLEX SIG 1957 sDNA (Cologuard) 1957 Pneumococcal Vaccine: 65+ Years (1 of 2 - PCV) 1963 COLONOSCOPY 1967 COLORECTAL CANCER SCREENING 1967 HEPATITIS C SCREENING 1975 MAMMO SCREENING 03/16/2005 03/16/2003, 01/21/2001 LUNG CANCER SCREENING 2007 LIPID 04/01/2010 04/01/2005, 04/20/2003 RSV VACCINE ( & 60+) (1 - 1-dose 60+ series) 2017 ZOSTER IMMUNIZATION (3 of 3) 12/14/2021 10/19/2021, 01/16/2016 FALL RISK ASSESSMENT 2022 MEDICARE ANNUAL WELLNESS VISIT 2022 01/14/2005, 04/12/2003 TSH W/FREE T4 REFLEX 02/01/2023 02/01/2022 COVID-19 Vaccine ( season) 2023 12/13/2021, 03/06/2021, 02/13/2021 INFLUENZA VACCINE (#1) 2023 , 10/03/2020, 09/16/2019, Additional history exists PHQ-2 (once per calendar year) 2023 DTAP/TDAP/TD IMMUNIZATION (2 - Td or Tdap) 08/11/2024 08/11/2014, 03/05/2006, 01/14/2005, Additional history exists PAP Discontinued 01/14/2005, 03/31, 01/13/2001 HPV IMMUNIZATION Aged Out No longer e ligible based on patient's age to complete this topic IPV IMMUNIZATION Aged Out No longer e ligible based on patient's age to complete this topic MENINGITIS IMMUNIZATION Aged Out No l onger eligible based on patient's age to complete this topic RSV MONOCLONAL ANTIBODY Aged Out No l onger eligible based on patient's age to complete this topic Advance Directives For more information, please contact: [phone] Latest Code Status on File Code Status [...] 7:49 PM 08/09/2015 12:02 PM Care Teams Straddle Buggy Operator Relationship Specialty Start Date End Date Rodolfo Pickett NP PCP - General Nurse Practitioner 02/13/15
--- OUTSIDE RECORDS SUMMARY | 2023-12-16 07:21 | XMS_ITS | Encounter Summary ---
Author Name Unknown Organization [facility] Address [address], [place] [address] Care Team Providers Care Marketing Lead Name Role Phone Annette Wakefield PA-C Primary Care Provider Reason for Visit * Reason Comments Dysuria Encounter Details Date Type Department Care Team Description 06/12/2023 12:40 PM CDT Office Visit [facility] [address] [place] [address] Brandi Mosquera PA-C [address] [place], [place] [id number] Dysuria; Acute cystitis with hematuria Social History Tobacco Use Types Packs/Day Years [...] Sign Reading Time Taken Comments Blood Pressure 150/84 06/12/2023 12:36 PM CDT Pulse 73 06/12/2023 12:36 PM CDT Temperature 36.4 ??C (97.6 ??F) 06/12/2023 12:36 PM C DT Respiratory Rate 17 06/12/2023 12:36 PM CDT Oxygen Saturation 100% 06/12/2023 12:36 PM CDT Inhaled Oxygen Concentration - - Weight - - Height - - Body Mass Index - - documented in this encounter Progress Notes * Brandi Mosquera PA-C - 06/12/2023 12:40 PM CDT Nurse Triage Note Ella Wakefield is a 67 y.o.female presents to the Urgent Care for Dysuria And pelvic pressure started today. Hx of UTI, last one about 1 month ago OTC- none Provider Note SUBJECTIVE: Ella Wakefield is a 67 y.o.female who presented to for evaluation of UTI symptoms whic hconsisten of stinging, burning, and pelvic pressure. This one hit pretty abruptly. Last UTI was about a month ago and she can't remember what she was prescribed. She says she had 3 UTIs close together now but prior to that it had been 7 years. She as on Keflex back in March and was seen at [facility] for the other episodes and can't remember what she was on. She is worried because she endedup being hospitalized 7 years ago and on dialysis after a bat UTI infection. No new soaps, lotions, detergents, perfumes, fabric softeners, travel, or bubble baths. Denies fever, chills, abdominal pain, N/V/D or back pain. Past medical history: Past Medical History: Diagnosis Date Arthritis BP (high blood pressure) (HRC) Caries Depression ESBL (extended spectrum beta-lactamase) producing bacteria infection Excessive thirst Gastric reflux GERD (gastroesophageal reflux disease) Hypertension (ACG) Hypothyroidism (ACG) Neurological disorder UTI (urinary tract infection) (HRC) Social History: Social History Tobacco Use Smoking status: Former Years: 10.00 Types: Cigarettes Quit date: 12/01/1994 Years since quittin.5 Smokeless tobacco: Never Vaping Use Vaping Use: Never used Substance Use Topics Alcohol use: Yes Alcohol/week: 11.0 standard drinks Types: 10 Glasses of wine, 1 Standard drinks or equivalent per week Drug use: No Adverse Drug Reactions: Patient has no known allergies. Medications: Calcium Carb-Cholecalciferol, LORazepam, Replens, Vitamin B-1, atorvastatin, buPROPion, calcium carbonate-vitamin D, celecoxib, cyclobenzaprine, dexamethasone, fluocinonide, folic acid, gabapentin, ibuprofen, levothyroxine, lisinopril-hydroCHLOROthiazide, omeprazole, rOPINIRole, sulfame thoxazole-trimethoprim, and traZODone OBJECTIVE: Vital Signs: BP (!) 150/84 (BP Location: Left Arm, BP Cuff Size: Regular - Long) Pulse 73 Temp 36.4 ??C (97.6 ??F) (Oral) Resp 17 SpO2 100% General: Alert, well-appearing, in NAD. Skin: MMM,no dehydration. CV: RRR, no clicks,rubs, gallops, or murmurs. Lungs: CTA, no CVA tenderness. Abdomen: Soft, nontender to palpation, no HSM or mass is noted. Labs: Results for orders placed or performed in visit on 06/12/23 Creatinine/GFR, WB POC Result Value Ref Range Creatinine, Whole Blood 0.8 0.6 - 1.0 mg/dL Performing Location LAB BU GFR, Estimated >60 >60 mL/min/1.73m2 Results for orders placed or performed in visit on 06/12/23 UA with Microscopic: Clean Catch Specimen: Clean Catch; Urine Result Value Ref Range Urine Color Straw Urine Clarity Cloudy (A) Clear Specific Rebecca, Urine 1.020 1.005 - 1.030 PH Urine 7.0 5.0 - 8.0 Protein, Urine Qual (mg/dL) 30 (A) Neg/Trace Glucose Urine Qual (mg/dL) Negative Negative Ketones, Urine (mg/dL) Negative Negative Urobilinogen, Urine (EU/dL) 0.2 <2.0 Bilirubin Urine Negative Negative Blood, Urine Small (A) Neg/Trace Nitrite Urine Negative Negative Leukocyte Est. Large (A) Negative Red Blood Cells 4-7 (A) 0 - 3 /HPF White Blood Cells Packed Field (A) 0 - 5 /HPF Bacteria Moderate (A) None Seen /HPF Squamous Epithelial Cells Occasional None Seen, Occasional, Few /HPF White Blood Cell Clumps Present (A) None Seen /HPF Urine Source Clean Catch Orders Placed This Encounter UA with Microscopic: Clean Catch Creatinine/GFR, WB POC Urine Culture - Collect in Clinic Today sulfamethoxazole-trimethoprim (BACTRIM DS) 800-160 MG tablet ASSESSMENT: 1. Dysuria 2. Acute cystitis with hematuria PLAN: Reviewed UA/micro results, symptoms consistent with UTI. Will start treatment with Bactrim, pendingculture, discussed direction for use. Reviewed allergies. Increase clear fluids throughout the day.Void after intercourse. Avoid bubble baths or fragrant products. Will call if culture not susceptible to abx, otherwise continue and finish course, follow-up if not gradually improving. The patient also has evidence of hematuria. The patient needs to have a repeat urinalysis in 3-4 weeks to make sure that the hematuria has resolved. If the culture is negative, stop the antibiotics and follow-up with primary care provider. If it shows normal yvon, continue antibiotics only if symptoms have improved. If not improving, recheck with primary care for further evaluation. Reviewed discharge instructions and plan for follow-up. Discussed warning signs and symptoms which warrant follow-up. All questions answered, patient agrees with the plan. The patient was discharged ambulatory and in stable condition Medications Prescribed this Visit Disp Refills Start End sulfamethoxazole-trimethoprim (BACTRIM DS) 800-160 MG tablet 14 Tablet 0 06/12/2023 06/19/2023 Take 1 Tablet by mouth two times a day for 7 days. Oral Discharge Instructions None documented in this encounter Nursing Notes * Mikala Cesar RN - 06/12/2023 12:40 PM CDT Ella Wakefield is a 67 y.o.female presents to the Urgent Care for Dysuria And pelvic pressure started today. Hx of UTI, last one about 1 month ago OTC- none documented in this encounter Plan of Treatment Not on file documented as of this encounter Procedures Procedure Name Priority Date/Time Associated Diagnosis Comments URINE CULTURE Routine 06/12/2023 12:32 PM CDT Dysuria UA WITH MICROSCOPIC STAT 06/12/2023 1 2:32 PM CDT Dysuria documented in this encounter Results * Creatinine/GFR, WB POC (06/12/2023 12:52 PM CDT) Creatinine, Whole Blood 0.8 0.6 - 1.0 mg/dL 06/12/2023 1:01 PM CDT [facility] Performing Location LAB BU 06/12/2023 1:01 PM CDT [facility] GFR, Estimated >60 >60 mL/min/1.7 3m2 06/12/2023 1:01 PM CDT [facility] Blood Venipuncture / Unknown 06/12/2023 12:52 PM CDT 06/12/2023 12:54 PM CDT Brandi Mosquera PA-C LAB_1 Performing Organization Address [facility]/ZIP Co de Phone Number [facility] [address] [place] [address], [place] [phone] * (ABNORMAL) Urine Culture - Collect in Clinic Today (06/12/2023 12:32 PM CDT) Urine Culture Growth(A) 06/13/2023 8:55 PM [facility] Urine Culture 10,000 - 50,000 CFU/mL Mixed Bacterial Growth 06/13/2023 8:55 PM [facility] Comment:Mixed Bacterial Grow th indicates the specimen is likely contaminated at collection with urogenital and/or fecal yvon. Urine URINE SPECIMEN COLLECTION, CLEAN CATCH / Unknown Non-blood Collection / Unknown 06/12/2023 12:32 PM CDT 06/12/2023 12:39 PM CDT Tonio HAYNES [facility]_1 Performing Organization Address [facility]/ZIP Co de Phone Number [address] [address], [facility] [phone] * (ABNORMAL) UA with Microscopic: Clean Catch (06/12/2023 12:32 PM CDT) Urine Color Straw 06/12/2023 12:48 PM CDT [facility] Urine Clarity Cloudy(A) Clear 06/12/2023 12:48 PM CDT [facility] Specific Rebecca, Urine 1.020 1.005 - 1.030 06/12/2023 12:48 PM CDT [facility] PH Urine 7.0 5.0 - 8.0 06/12/2023 12:48 PM [facility] Protein, Urine Qual (mg/dL) 30(A) Neg/Trace 06/12/2023 12:48 PM [facility] Glucose Urine Qual (mg/dL) Negative Negative 06/12/2023 12:48 PM [facility] Ketones, Urine (mg/dL) Negative Negative 06/12/2023 12:48 PM [facility] Urobilinogen, Urine (EU/dL) 0.2 <2.0 06/12/2023 12:48 PM [facility] Bilirubin Urine Negative Negative 06/12/2023 12:48 PM [facility] Blood, Urine Small(A) Neg/Trace 06/12/2023 12:48 PM [facility] Nitrite Urine Negative Negative 06/12/2023 12:48 PM [facility] Leukocyte Est. Large(A) Negative 06/12/2023 12:48 PM [facility] Red Blood Cells 4-7(A) 0 - 3 /HPF 06/12/2023 12:48 PM [facility] White Blood Cells Packed Field(A) 0 - 5 /HPF 06/12/2023 12:48 PM [facility] Bacteria Moderate(A) None Seen /HPF 06/12/2023 12:48 PM [facility] Squamous Epithelial Cells Occasional None Seen, Occasional, Few /HPF 06/12/2023 12:48 PM [facility] White Blood Cell Clumps Present(A) None Seen /HPF 06/12/2023 12:48 PM [facility] Urine Source Clean Catch 06/12/2023 12:48 PM T [facility] Urine URINE SPECIMEN COLLECTION, CLEAN CATCH / Unknown Non-blood Collection / Unknown 06/12/2023 12:32 PM CDT 06/12/2023 12:39 PM T Tonio HAYNES [facility] [address] [place] [address], [facility] [phone] documented in this encounter Visit Diagnoses Diagnosis Dysuria Acute cystitis with hematuria Acute cystitis documented in this encounter Care Teams Marketing Lead Relationship Specialty Start Date End Date Annette Wakefield PA-C PCP - General Physician Cashier And Waiter/Waitress 09/12/21 06/19/23 documented as of this encounter
--- OUTSIDE RECORDS SUMMARY | 2023-12-16 07:21 | XMS_ITS | Clinical Summary ---
Author Name Unknown Organization [facility] Address [address] [place] [address] Care Team Providers Care Sheetrock Applicator Name Role Phone Needs Pcp, Assignment Primary Care Provider [phone] Source Comments You are receiving this document as you are listed as the primary care provider,follow-up provider, or the patient has been referred to you for consultation.This is in compliance with the Medicare and[facility] EHR Incentive Program,which states Providers who transition their patient to another setting of careor provider of care or refers their patient to another provider of care shouldprovide summary care record for each transition of care or referral. [facility] Allergies No known active allergies Medications Medication Sig Dispensed Refills Start Date End Date Status atorvastatin (LIPITOR) 20 MG tabletIndications:Hy perlipidemia, unspecified hyperlipidemia type (HRC) Take 1 Tablet by mouth daily. 90 Tablet 3 11/01/2020 Active buPROPion (WELLBUTRIN XL) 300 MG 24 hour release tabletIndications:An xiety and depression (HRC) Take 1 Tablet by mouth daily. 90 Tablet 3 11/01/2020 Active calcium carbonate-vitamin D 600-400 MG-UNIT tablet Take 1 Tablet by mouth two times a day. 180 Tablet 3 11/01/2020 Active cyclobenzaprine (FLEXERIL) 10 MG tablet Take 1 Tablet by mouth two times daily as needed. 30 Tablet 3 11/01/2020 Active gabapentin (NEURONTIN) 300 MG capsule TAKE 3 CAPSULES BY MOUTH 2 TO 3 TIMES DAILY 540 Capsule 3 11/01/2020 Active ibuprofen (MOTRIN) 600 MG tabletIndications:Ba ck pain, unspecified back location, unspecified back pain laterality, unspecified chronicity Take 1 Tablet by mouth every 8 hours. for pain 30 Tablet 3 11/01/2020 Active levothyroxine (SYNTHROID) 75 MCG tabletIndications:Hy pothyroidism, unspecified type (HRC) Take 1 Tablet by mouth daily. 90 Tablet 3 11/01/2020 Active lisinopril-hydroCHLO ROthiazide (PRINZIDE) 20-12.5 MG tablet Take 1 Tablet by mouth daily. 90 Tablet 3 11/01/2020 Active traZODone (DESYREL) 150 MG tabletIndications:Ch ronic insomnia Take 1 Tablet by mouth at bedtime as needed. for sleep 90 Tablet 3 11/01/2020 Active Vaginal Lubricant (REPLENS)Indications :Atrophic vaginitis,Dyspareuni a in female Apply three times a week by vaginal route 35 g 11 11/01/2020 Active LORazepam (ATIVAN) 0.5 MG tabletIndications:An xiety (HRC) Take 1 Tablet by mouth daily as needed for Anxiety. 10 Tablet 0 11/01/2020 Active dexamethasone (DECADRON) 2 MG tablet Take 2 mg by mouth at 11 pm. Go to lab the next morning before 9 am to have your blood drawn. 1 Tablet 0 11/01/2020 Active Additional Information Patient not taking.Reported on 06/12/2023 Thiamine HCl (VITAMIN B-1) 50 MG tabletIndications:Al cohol use Take 1 tablet by mouth once daily 90 Tablet 0 11/05/2021 Active folic acid 1 MG tabletIndications:Fo late deficiency (HRC) Take 1 tablet by mouth once daily 90 Tablet 0 11/05/2021 Active omeprazole (PRILOSEC) 20 MG capsule TAKE 1 CAPSULE BY MOUTH ONCE DAILY 1 HOUR BEFORE A MEAL 90 Capsule 0 11/05/2021 Active rOPINIRole (REQUIP) 1 MG tablet TAKE 1 TO 2 TABLETS BY MOUTH ONCE DAILY AT BEDTIME 60 Tablet 0 01/09/2022 Active Calcium Carb-Cholecalciferol 600-10 MG-MCG CAPS Take 1 Tablet by mouth daily. 0 12/31/2022 Active celecoxib (CELEBREX) 200 MG capsule Take 1 Capsule (200 mg) by mouth two times a day. 0 01/28/2023 Active fluocinonide (LIDEX) 0.05 % cream Apply topically two times a day. 0 10/20/2022 Active Active Problems Problem Noted Date Diagnosed Date Adrenal nodule 11/01/2020 Overview: Right adrenal nodule - CT in Oct 2020 showing slight increase in size compared to 2015. Looks like lipid rich adenoma. - dexamethasone suppression test and labs ordered - CT f/u in 6 month, 12 months, and 2 years. 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 Treating with panoxyl feet wash and triamcinolone on the skin lesions Tubular adenoma 02/17/2017 Overview: Repeat colonoscopy in December 2020. 1 tubular adenoma and hyperplastic polyp. Last colonoscopy in 2015. She should do split prep dosing. Recommend MAC for future colonoscopies. History of alcohol abuse 06/20/2015 Overview: Drinks 1 drink a week now Neuropathy, peripheral 06/21/2013 Vitamin D deficiency 10/13/2012 GERD (gastroesophageal reflux disease) 2 Hypothyroidism 08/26/2012 Anxiety 08/26/2012 Depression 08/26/2012 Essential hypertension 08/26/2012 Immunizations Name Administration Dates Next Due Flu Vac (3+ yrs) 08/26/2012, 1,10/04/2009,2007 Flu Vac Preserv Free (3+yrs) 08/26/2012 HepA-HepB (TWINRIX, 18+ yrs) 01/15/2019,02/10/20 12 HepB Adult (Engerix-B, 20+ y rs, 3 dose series) 11/06/2017,02/17/2017,10/21/2012 Influenza IIV4 (Quadrivalent ) 0.5mL (62142) 10/03/2020,09/16/2019,01/15/2019,2016,10/08/2016,10/24/2015,08/11/2014,1 12/09/2010,01/04/2011,10/04/2009, 008 Influenza, Unspecified Formulation 09/26/1995 Pfizer Monovalent 12+ Purple Top 03/06/2021,01/29 TB Skin Test (PPD) 08/02/2015 TDAP (BOOSTRIX) 08/11/2014 Td 03/05/2006,12/31/1993 Td (7+ yrs) 01/14/2005 Zoster (Zostavax) 01/16/2016 Family History Medical History Relation Name Comments Cancer, Lung Mother High Blood Pressure Mother Cancer, Ovary Daughter Heart Disease Maternal Grandfather Stroke Paternal Grandmother High Blood Pressure Sister Relation Name Status Comments Father Alive Mother Daughter Maternal Grandfather Paternal Grandmother Sister Social History Tobacco Use Types Packs/Day Years [...] CDT Inhaled Oxygen Concentration - - Weight 63.6 kg (140 lb 3.2 oz) 01/15/2019 8:08 A M 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 Height 153.7 cm (5' 0.5) 01/15/2019 8:08 AM LOC[employer] 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 Body Mass Index 26.93 01/15/2019 8:08 AM [employer] 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 Plan of Treatment Health Maintenance Due Date Last Done Comments HepA (3 of 3 - Hep A Twinrix risk 3-dose series) 06/14/2019 01/15/2019, 02/10/2012 Colonoscopy 12/18/2020 12/18/2015, 12/24/1995 Prediabetes: HGBA1C 09/01/2021 09/01/2020, 01/15/2019, 08/07/2018, Additional history exists Mammogram 10/19/2021 10/19/2020, 08/2019, 01/09/2018, Additional history exists Dexa 2022 Pneumococcal 65+ Yrs (1 - PCV) 2022 COVID-19 Vaccine (3 - season) 2023 03/06/2021, 02/13/2021 Influenza (#1) 2023 10/19/2021, 01/2020, 09/16/2019, Additional history exists Medicare Annual Wellness Visit 12/01/2023 DTaP/Tdap/Td (2 - Tdap) 08/11/2024 08/11/20 14, 03/05/2006, 01/14/2005, Additional history exists Cholesterol 09/01/2025 09/01/2020, 01/01, 08/07/2018, Additional history exists Cervical Cancer Screening Discontinued 02/17/2017, Hep C Screening (Preventive Services) Completed 11/06/2017, 07/19/2015, 08/10/2014, Additional history exists HepB Completed 01/15/2019, 05/2017, 02/17/2017, Additional history exists Zoster/Shingles Completed 02/08/2022, 10/01, 01/16/2016 Hib Aged Out No longer eligi ble based on patient's age to complete this topic IPV (Polio) Aged Out No longer eligi ble based on patient's age to complete this topic MCV4 Aged Out No longer eligi ble based on patient's age to complete this topic Care Teams Sheetrock Applicator Relationship Specialty Start Date End Date Needs Pcp, [place], [place] [id number] PCP - General 06/20/23
--- OUTSIDE RECORDS SUMMARY | 2023-12-16 07:22 | XMS_ITS | Clinical Summary ---
Author Name Unknown Organization [facility] Address [address] [place] [id number] Phone Care Team Providers Care Label Coder Name Role Phone Rodolfo Pickett NP Primary Care Provider [phone] Medications Medication Sig Dispensed Refills Start Date End Date Status levothyroxine (SYNTHROID, LEVOTHROID) 75 MCG tablet 1 po qday 0 08/15/2015 Active omeprazole (PriLOSEC) [address] capsule 1 po qoday 0 08/15/2015 Active Vancomycin HCl (VANCOMYCIN+SYRSPEND SF PH4) 50 MG/ML suspension 5mL po 4x daily for 7 days 0 08/15/2015 Active LORazepam (ATIVAN) 0.5 MG tablet 1 tab q6h prn 0 08/15/2015 Active Thiamine HCl (VITAMIN B-1) 50 MG tablet 1 po qday 0 08/15/2015 Active lisinopril-hydroCHLOROt hiazide (PRINZIDE,ZESTORETIC) 20-25 MG per tablet 1 tab once daily 3 02/01/2016 Active cyclobenzaprine (FLEXERIL) 10 MG tablet 1 tab tid prn 0 08/15/2015 Active citalopram (CeleXA) 20 MG tablet 1 po qday 0 08/15/2015 Active calcium carbonate-vitamin D (CALCIUM 600+D) 600-400 MG-UNIT per tablet 1 po qday 0 08/15/2015 Active Active Problems Problem Noted Date Diagnosed Date Acute kidney failure 08/22/2015 Essential (primary) hypertension 08/22/2015 Anemia 08/22/2015 Iron deficiency anemia 08/22/2015 Social History Tobacco Use Types Packs/Day Years Used Date Smoking Tobacco: Never Assessed Sex and Gender Information Value Date Recorded Sex Assigned at Not on file Gender Identity Not on file Sexual Orientation Not on file Last Filed Vital Signs Vital Sign Reading Time Taken Comments Blood Pressure 140/96 08/15/2015 12:01 AM CDT Ri ght Pulse - - Temperature - - Respiratory Rate - - Oxygen Saturation - - Inhaled Oxygen Concentration - - Weight 66.7 kg (147 lb) 08/15/2015 12:01 AM CDT Height 154.9 cm (5' 1) 08/15/2015 12:01 AM CDT Body Mass Index 27.78 08/15/2015 12:01 AM CDT Plan of Treatment Not on file Insurance Payer Benefit Plan / Group Subscriber ID Effective Dates Phone Address Type PM INTERFACED INSURANCE PM INTERFACED INSURANCE - OPEN 2015-11/30 [address] [address] [place] [address] Care Teams Label Coder Relationship Specialty Start [place] [address] [place] [address] PCP - General 07/25/21
== END 2023-12-16 07:19 | disposition home or self-care (01) ==
PROVIDERS: PCP Physician Assistant; Visit Provider Family Medicine
DX: M51.36 Other intervertebral disc degeneration, lumbar region (principal); M54.16 Radiculopathy, lumbar region
CPT/HCPCS: 62323; J0702; Q9966

== ENCOUNTER 2024-04-20 09:07 | Outpatient (CLI) | payer MEDICARE, SELFPAY ==
--- OUTSIDE RECORDS SUMMARY | 2024-04-20 09:12 | XMS_ITS | Clinical Summary ---
Author Name Unknown Organization [facility] Address [facility] [place] [address] Care Team Providers Care Staff Cytotechnologist Name Role Phone Rodolfo Pickett FISCAL ASSISTANT Primary Care Provider [phone] Allergies Active Allergy Reactions Criticality Noted Date Comments No Clinical Screening - See Comments 08/01/2015 Relacore thinks it was the thiamine in the relacore that caused hives Medications Medication Sig Dispensed Refills Start Date End Date Status LEVOTHYROXINE SODIUM PO Take 75 mcg by mouth daily Active citalopram (CELEXA) 20 MG tablet Take 20 mg by mouth daily Active Thiamine HCl (VITAMIN B-1) 50 MG tablet Take 50 mg by mouth daily Active cyclobenzaprine (FLEXERIL) 10 MG tablet Take 10 mg by mouth 3 times daily as needed for muscle spasms Active omeprazole (PRILOSEC) 20 MG capsule Take 20 mg by mouth every other day Active calcium-vitamin D (CALTRATE) 600-400 MG-UNIT per tablet Take 1 tablet by mouth daily Active LORazepam (ATIVAN) 0.5 MG tablet Take 0.5 mg by mouth every 6 hours as needed for anxiety Active amLODIPine (NORVASC) 5 MG tabletIndications:HTN (hypertension) Take 1 tablet (5 mg) by mouth At Bedtime 30 tablet 1 08/09/2015 Active traZODone (DESYREL) 100 MG tablet Take 150 mg by mouth At Bedtime Active budesonide-formoterol (SYMBICORT) 160-4.5 MCG/ACT Inhaler Inhale 2 puffs into the lungs 2 times daily Active cetirizine (ZYRTEC) 10 MG tablet Take 10 mg by mouth every evening Active folic acid (FOLVITE) 1 MG tablet Take 1 mg by mouth daily Active lisinopril-hydrochlor othiazide (ZESTORETIC) 20-12.5 MG tablet Take 1 tablet by mouth daily Active oxybutynin ER (DITROPAN XL) 15 MG 24 hr tablet Take 15 mg by mouth daily Active pregabalin (LYRICA) 75 MG capsule Take 75 mg by mouth 3 times daily Active buPROPion (WELLBUTRIN XL) 300 MG 24 hr tablet Take 300 mg by mouth every morning Active Active Problems Problem Noted Date Diagnosed [...] Date Smoking Tobacco: Former Cigarettes 1 20 0 12/01/1977 - 12/01/1997 Alcohol Use Standard Drinks/Week Comments Yes [...] Comments Blood Pressure 129/77 02/03/2022 10:30 AM SENIOR J2EE DEVELOPER Pulse 58 02/03/2022 7:36 AM SENIOR J2EE DEVELOPER Temperature 36.5 ??C (97.7 ??F) 02/03/2022 7:36 AM CS T Respiratory Rate 16 02/03/2022 7:36 AM SENIOR J2EE DEVELOPER Oxygen Saturation 97% 02/03/2022 7:36 AM SENIOR J2EE DEVELOPER Inhaled Oxygen Concentration - - Weight 63.3 kg (139 lb 9.6 oz) 02/01/2022 6:14 P M SENIOR J2EE DEVELOPER Height 154.9 cm (5' 1) 02/01/2022 6:14 PM SENIOR J2EE DEVELOPER Body Mass Index 26.38 02/01/2022 6:14 PM SENIOR J2EE DEVELOPER Plan of Treatment Health Maintenance Due Date [...] Vaccine ( season) 2023 12/13/2021, 03/06/2021, 02/13/2021 PHQ-2 (once per calendar year) 2023 INFLUENZA VACCINE (Season Ended) 2024 10/19/2021, 10/03/2020, 09/16/2019, Additional history exists DTAP/TDAP/TD IMMUNIZATION (2 - Td or Tdap) 08/11/2024 08/11/2014, 03/05/2006, 01/14/2005, Additional history exists GLUCOSE 02/02/2025 02/02/2022, 03/2022, 02/01/2022, Additional history exists PAP Discontinued 01/14/2005, 03/31, [...] on patient's age to complete this topic Procedures Procedure Name Priority Date/Time Associated Diagnosis Comments COMPREHENSIVE METABOLIC PANEL Routine 02/02/2022 6:50 AM SENIOR J2EE DEVELOPER TSH WITH FREE T4 REFLEX STAT 02/01/2022 11:18 AM SENIOR J2EE DEVELOPER CL AFF A.M.A. LIPID PANEL Routine 04/01/2005 11:03 AM CDT Routine Medical Exam HCL PAP THIN LAYER SCREEN Routine 01/14/2005 12:00 AM SENIOR J2EE DEVELOPER Screening Mal Neop-Cervix C MAMMOGRAM, SCREENING Routine 03/16/2003 MAMMOGRAM SCREENING BILAT from Last 3 Months or Most Recently Relevant to Health Maintenance Results * (ABNORMAL) Comprehensive metabolic panel (02/02/2022 6:50 AM SENIOR J2EE DEVELOPER) Sodium 137 133 - 144 mmol/L 02/02/2022 7:35 AM SENIOR J2EE DEVELOPER [facility] Potassium 4.0 3.4 - 5.3 mmol/L 02/02/2022 7:35 AM SENIOR J2EE DEVELOPER [facility] Chloride 107 94 - 109 mmol/L 02/02/2022 7:35 AM SENIOR J2EE DEVELOPER [facility] Carbon Dioxide (CO2) 27 20 - 32 mmol/L 02/02/2022 7:[address] [facility] Anion Gap 3 3 - 14 mmol/L 02/02/2022 7:[address] [facility] Urea Nitrogen 14 7 - 30 mg/dL 02/02/2022 7:[address] [facility] Creatinine 1.03 0.52 - 1.04 mg/dL 02/02/2022 7:[address] [facility] Calcium 8.7 8.5 - 10.1 mg/dL 02/02/2022 7:[address] [facility] Glucose 114(H) 70 - 99 mg/dL 02/02/2022 7:[address] [facility] Alkaline Phosphatase 61 40 - 150 U/L 02/02/2022 7:[address] [facility] AST 13 0 - 45 U/L 02/02/2022 7:[address] [facility] ALT 22 0 - 50 U/L 02/02/2022 7:[address] [facility] Protein Total 6.2(L) 6.8 - 8.8 g/dL 02/02/2022 7:[address] [facility] Albumin 3.0(L) 3.4 - 5.0 g/dL 02/02/2022 7:[address] [facility] Bilirubin Total 0.5 0.2 - 1.3 mg/dL 02/02/2022 7:[address] [facility] GFR Estimate 60(L) >60 mL/min/1.7 3m2 02/02/2022 7:[address] [facility] Comment:Effective November 012020 eGFRcr in adults is calculated using the 2020 CKD-EPI creatinine equation which includes age and gender (Charley et al., NEJ, DOI: 10.1056/SIDXvu4636331) Blood STRUCTURE OF LEFT UPPER LIMB / Unknown Venipuncture / Unknown 02/02/2022 6:50 AM SENIOR J2EE DEVELOPER 02/02/2022 6:56 AM [facility] Elan Johnson DO LAB - BLOOD [facility] Acute Care Lab [address] [facility] Lab (1st floor, no room number) [place] [address], [facility] [phone] * TSH with free T4 reflex (02/01/2022 11:18 AM SENIOR J2EE DEVELOPER) Pathologist [facility] TSH 2.22 0.40 - 4.00 mU/L 02/01/2022 12:08 PM SENIOR J2EE DEVELOPER LABORATORY Blood STRUCTURE OF RIGHT UPPER LIMB / Unknown Venipuncture / Unknown 02/01/2022 11:18 AM SENIOR J2EE DEVELOPER 02/01/2022 11:23 AM SENIOR J2EE DEVELOPER Reji Ocampo MD LAB - BLOOD ORDER [facility] Acute Care Lab [address] Lab (1st floor, no room number) [place] [address], [facility] [phone] * A.M.A. LIPID PANEL (04/01/2005 11:03 AM CDT) [facility] Cholesterol 176 0 - 200 mg/dL [facility] Comment: Cholesterol Reference Range: <200 ??The NCEP recommends further ? evaluation of: ? 1. ??Patients with cholesterol ? greater than 200 mg/dL ? if additional risk factors ? are present. ? 2. ??All patients with a ? cholesterol greater than ? 240 mg/dL. Triglycerides 107 0 - 150 mg/dL [facility] HDL Cholesterol 74 >40 mg/dL [facility] LDL Cholesterol Calculated 80 0 - 129 mg/dL [facility] VLDL-Cholesterol 21 0 - 30 mg/dL [facility] Cholesterol/HDL Ratio 2.4 0.0 - 5.0 [facility] 04/01/2005 11:0 3 AM CDT 04/01/2005 11:06 AM CDT Perfecto Rios MD LABORATORY [facility] * A THIN LAYER PAP SCREEN (01/14/2005 12:00 AM SENIOR J2EE DEVELOPER) Copath Report Patient Name: KARYNA WAKEFIELD MR#: [id number] Specimen #: [id number] Collected: 01/14/2005 Received: 01/15/2005 Reported: 01/16/2005 10:17 Ordering Phy(s): [place] SPECIMEN/STAIN PROCESS: Pap thin layer prep screening ? Pap-Cyto x 1, Reflex HPV x 1 SOURCE: Cervical, endocervical Pap thin layer prep screening SPECIMEN ADEQUACY: Satisfactory for evaluation. -Transitional zone component absent. CYTOLOGIC INTERPRETATION: Negative for Intraepithelial Lesion or Malignancy Electronically signed out by: MARISOL Rocha (ASCP) Processed and screened at [facility] CLINICAL HISTORY: LMP: 01/01/05 Previous normal pap Date of Last Pap: 04/12/03, COPATH 01/14/2005 01/15/2005 11: 43 AM SENIOR J2EE DEVELOPER [place] SOCIAL WORK THERAPIST [employer] [facility] COPATH * MAMMOGRAM, SCREENING (03/16/2003) MAMMOGRAM Anatomical Region Laterality Modality Other Impressions 03/16/2003 SCREENING MAMMOGRAM, BILATERAL BREAST SYMPTOMS: None PREVIOUS MAMMOGRAPHY: Comparison with [facility] dated 01/21/01. There is no significant change. BREAST PARENCHYMA: Heterogeneously dense. IMPRESSION: CATEGORY 1 Negative TECHNOLOGIST INITIALS: LP Ordering Provider: ??KARYN MARK Principal Result Grocery Clerk: ??KACEY WHEELRE [place] Soaping Machine Operator: ??Scott Raines Electronically filed by Debra Gaston ??03/22/2003 ??9:17 AM Karyn Mark MD SPECIAL IMAGING STUDIES from Last 3 Months or Most Recently Relevant to Health Maintenance Advance Directives For more information, please contact: [phone] * Full Code (Latest Code Status on File) Date Activated Date Inactivated Comments 02/01/2022 6:14 PM 02/03/2022 2:42 PM All basic and advanced life-sustaining interventions are performed as appropriate Question Answer Comments Code status determined by: Discussion with tucker nt/ legal decision maker * Full Code Date Activated Date Inactivated Comments 08/09/2015 12:02 PM 02/01/2022 10:51 AM * Full Code Date Activated Date Inactivated Comments 07/31/2015 7:49 PM 08/09/2015 12:02 PM Care Teams Staff Cytotechnologist Relationship Specialty Start Date End Date Rodolfo Pickett NP PCP - General Nurse Practitioner 02/13/15
--- OUTSIDE RECORDS SUMMARY | 2024-04-20 09:12 | XMS_ITS | Referral Summary ---
Author Name Unknown Organization [place] Address [address] [facility] [place] [address] Care Team Providers Care Petroleum Inspector Supervisor Name Role Phone Rodolfo Pickett SPUN PASTE MACHINE OPERATOR Primary Care Provider [phone] Allergies Active Allergy Reactions Criticality Noted Date [...] Mantoux Tuberculin Skin Test 08/02/2015 TD,PF 7+ (Teniva) 01/14/2005,12/01/1993 Social History Tobacco Use Types Packs/Day [...] Comments Blood Pressure 129/77 02/03/2022 10:30 AM DIRECTOR EXPORT Pulse 58 02/03/2022 7:36 AM DIRECTOR EXPORT Temperature 36.5 ??C (97.7 ??F) 02/03/2022 7:36 AM CS T Respiratory Rate 16 02/03/2022 7:36 AM DIRECTOR EXPORT Oxygen Saturation 97% 02/03/2022 7:36 AM DIRECTOR EXPORT Inhaled Oxygen Concentration - - Weight 63.3 kg (139 lb 9.6 oz) 02/01/2022 6:14 P M DIRECTOR EXPORT Height 154.9 cm (5' 1) 02/01/2022 6:14 PM DIRECTOR EXPORT Body Mass Index 26.38 02/01/2022 6:14 PM DIRECTOR EXPORT Plan of Treatment Not on file Procedures Procedure Name Priority Date/Time Associated Diagnosis Comments COMPREHENSIVE METABOLIC PANEL Routine 02/02/2022 6:50 AM DIRECTOR EXPORT TSH WITH FREE T4 REFLEX STAT 02/01/2022 11:18 AM DIRECTOR EXPORT CL AFF A.M.A. LIPID PANEL Routine 04/01/2005 11:03 AM CDT Routine Medical Exam HCL PAP THIN LAYER SCREEN Routine 01/14/2005 12:00 AM DIRECTOR EXPORT Screening Mal Neop-Cervix C MAMMOGRAM, SCREENING Routine 03/16/2003 MAMMOGRAM SCREENING BILAT from Last 3 Months or Most Recently Relevant to Health Maintenance Results * (ABNORMAL) Comprehensive metabolic panel (02/02/2022 6:50 AM DIRECTOR EXPORT) Sodium 137 133 - 144 mmol/L 02/02/2022 7:35 AM [facility] Potassium 4.0 3.4 - 5.3 mmol/L 02/02/2022 7:35 AM [facility] Chloride 107 94 - 109 mmol/L 02/02/2022 7:35 AM [facility] Carbon Dioxide (CO2) 27 20 - 32 mmol/L 02/02/2022 7:35 AM [facility] Anion Gap 3 3 - 14 mmol/L 02/02/2022 7:35 AM [facility] EXPORT LAB[facility]ORY Urea Nitrogen 14 7 - 30 mg/dL 02/02/2022 7:35 AM [facility] Creatinine 1.03 0.52 - 1.04 mg/dL 02/02/2022 7:35 AM [facility] Calcium 8.7 8.5 - 10.1 mg/dL 02/02/2022 7:35 AM [facility] Glucose 114(H) 70 - 99 mg/dL 02/02/2022 7:35 AM [facility] EXPORT LABOR[facility]ORY Alkaline Phosphatase 61 40 - 150 U/L 02/02/2022 7:35 AM DIRECTOR EXPORT LABORATORY AST 13 0 - 45 U/L 02/02/2022 7:35 AM [facility] EXPORT LABOR[facility]ORY ALT 22 0 - 50 U/L 02/02/2022 7:35 AM DIRECTOR EXPORT LABORATORY Protein Total 6.2(L) 6.8 - 8.8 g/dL 02/02/2022 7:35 AM DIRECTOR EXPORT LABORATORY Albumin 3.0(L) 3.4 - 5.0 g/dL 02/02/2022 7:35 AM [facility]OR EXPORT LABORATORY Bilirubin Total 0.5 0.2 - 1.3 mg/dL 02/02/2022 7:35 AM DIRECTOR EXPORT LABORATORY GFR Estimate 60(L) >60 mL/min/1.7 3m2 02/02/2022 7:35 AM DIRECTOR EXPORT LABORATORY Comment:Effective November 012020 eGFRcr in adults is calculated using the 2020 CKD-EPI creatinine equation which includes age and gender (Charley et al., NEJM, DOI: 10.1056/ZSLTcn7589088) Blood STRUCTURE OF LEFT UPPER LIMB / Unknown Venipuncture / Unknown 02/02/2022 6:50 AM DIRECTOR EXPORT 02/02/2022 6:56 AM DIRECTOR EXPORT Elan Johnson DO LAB - BLOOD ORDERA [facility] [address] Lab (1st floor, no room number) [place] [address], [facility] [phone] * TSH with free T4 reflex (02/01/2022 11:18 AM DIRECTOR EXPORT) TSH 2.22 0.40 - 4.00 mU/L 02/01/2022 12:08 PM DIRECTOR EXPORT LABORATORY Blood STRUCTURE OF RIGHT UPPER LIMB / Unknown Venipuncture / Unknown 02/01/2022 11:18 AM DIRECTOR EXPORT 02/01/2022 11:23 AM DIRECTOR EXPORT Reji Ocampo MD LAB - BLOOD ORDER JILLIAN [facility] [address] Lab (1st floor, no room number) [place] [address], [facility] [phone] * A.M.A. LIPID PANEL (04/01/2005 11:03 AM CDT) [facility] Cholesterol 176 0 - 200 mg/dL [facility] Comment: Cholesterol Reference Range: <200 ??The NCEP recommends further ? evaluation of: ? 1. ??Patients with cholesterol ? greater than 200 mg/dL ? if additional risk factors ? are present. ? 2. ??All patients with a ? cholesterol greater than ? 240 mg/dL. Triglycerides 107 0 - 150 mg/dL [facility] HDL Cholesterol 74 >40 mg/dL [facility] LDL Cholesterol Calculated 80 0 - 129 mg/dL [facility] VLDL-Cholesterol 21 0 - 30 mg/dL [facility] Cholesterol/HDL Ratio 2.4 0.0 - 5.0 [facility] 04/01/2005 11:0 3 AM CDT 04/01/2005 11:06 AM CDT Perfecto Rios MD LABORATORY [facility] * A THIN LAYER PAP SCREEN (01/14/2005 12:00 AM DIRECTOR EXPORT) Pathologist [facility] Copath Report Patient Name: KARYNA WAKEFIELD MR#: [id number] Specimen #: [id number] Collected: 01/14/2005 Received: 01/15/2005 Reported: 01/16/2005 10:17 Ordering Phy(s): SHARON COLLINS SPECIMEN/STAIN PROCESS: Pap thin layer prep screening ? Pap-Cyto x 1, Reflex HPV x 1 SOURCE: Cervical, endocervical Pap thin layer prep screening SPECIMEN ADEQUACY: Satisfactory for evaluation. -Transitional zone component absent. CYTOLOGIC INTERPRETATION: Negative for Intraepithelial Lesion or Malignancy Electronically signed out by: MARISOL Rocha (ASCP) Processed and screened at [facility] CLINICAL HISTORY: LMP: 01/01/05 Previous normal pap Date of Last Pap: 04/12/03, COPATH 01/14/2005 01/15/2005 11: 43 AM DIRECTOR EXPORT Sharon Collins PLANT ANATOMY TEACHER INSIGHTS MANAGER LABORATORY COPATH * MAMMOGRAM, SCREENING (03/16/2003) MAMMOGRAM Anatomical Region Laterality Modality Other Impressions 03/16/2003 SCREENING MAMMOGRAM, BILATERAL BREAST SYMPTOMS: None PREVIOUS MAMMOGRAPHY: Comparison with [facility] dated 01/21/01. There is no significant change. BREAST PARENCHYMA: Heterogeneously dense. IMPRESSION: CATEGORY 1 Negative TECHNOLOGIST INITIALS: LP Ordering Provider: ??KARYN MARK Principal Result Manager Of Pmo: ??KACEY WHEELER Legal Job Titles: ??Scott Raines Electronically filed by Debra Gaston ??03/22/2003 ??9:17 AM Karyn Mark MD SPECIAL IMAGING STUDIES from Last 3 Months or Most Recently Relevant to Health Maintenance Advance Directives For more information, please contact: [phone] * Full Code (Latest Code Status on File) Date Activated Date Inactivated Comments 02/01/2022 6:14 PM 02/03/2022 2:42 PM All basic and advanced life-sustaining interventions are performed as appropriate Question Answer Comments Code status determined by: Discussion with patie nt/ legal decision maker * Full Code Date Activated Date Inactivated Comments 08/09/2015 12:02 PM 02/01/2022 10:51 AM * Full Code Date Activated Date Inactivated Comments 07/31/2015 7:49 PM 08/09/2015 12:02 PM Care Teams Petroleum Inspector Supervisor Relationship Specialty Start Date End Date Rodolfo Pickett NP PCP - General Nurse Practitioner 02/13/15
--- OUTSIDE RECORDS SUMMARY | 2024-04-20 09:13 | XMS_ITS | Clinical Summary ---
Author Name Unknown Organization [facility] Address [address] [place] [address] Care Team Providers Care Precision Millwright Name Role Phone Needs Pcp, Assignment Primary Care Provider [phone] Source Comments You are receiving this document as you are listed as the primary care provider,follow-up provider, or the patient has been referred to you for consultation.This is in compliance with the Medicare and[facility] Hospital[facility] EHR Incentive Program,which states Providers who transition their patient to another setting of careor provider of care or refers their patient to another provider of care shouldprovide summary care record for each transition of care or referral. [facility] Allergies No known active allergies Medications [...] daily as needed for Anxiety. 10 Tablet 11/01/2020 Active dexamethasone (DECADRON) 2 MG tablet Take 2 mg by mouth at 11 pm. Go to lab the next morning before 9 am to have your blood drawn. 1 Tablet 11/01/2020 Active Additional Information Patient not taking.Reported on 06/12/2023 Thiamine HCl (VITAMIN B-1) 50 MG tabletIndications:Al cohol use Take 1 tablet by mouth once daily 90 Tablet 11/05/2021 Active folic acid 1 MG tabletIndications:Fo late deficiency (HRC) Take 1 tablet by mouth once daily 90 Tablet 11/05/2021 Active omeprazole (PRILOSEC) 20 MG capsule TAKE 1 CAPSULE BY MOUTH ONCE DAILY 1 HOUR BEFORE A MEAL 90 Capsule 11/05/2021 Active rOPINIRole (REQUIP) 1 MG tablet TAKE 1 TO 2 TABLETS BY MOUTH ONCE DAILY AT BEDTIME 60 Tablet 01/09/2022 Active Calcium Carb-Cholecalciferol 600-10 MG-MCG CAPS Take 1 Tablet by mouth daily. 12/31/2022 Active celecoxib (CELEBREX) 200 MG capsule Take 1 Capsule (200 mg) by mouth two times a day. 01/28/2023 Active fluocinonide (LIDEX) 0.05 % cream Apply topically two times a day. 10/20/2022 Active Active Problems Problem Noted Date Diagnosed Date Adrenal nodule 11/01/2020 Overview: Right adrenal nodule - CT in Oct 2020 showing slight increase in size compared to 2014. Looks like lipid rich adenoma. - dexamethasone [...] series) 11/06/2017,02/17/2017,10/21/2012 Influenza IIV4 (Quadrivalent ) 0.5mL (76697) 10/03/2020,09/16/2019,01/15/2019,2016,10/08/2016,10/24/2015,08/11/2014,1 12/09/2010,01/04/2011,10/04/2009, 008 Influenza, Unspecified Formulation 09/26/1995 [...] Years Used Date Smoking Tobacco: Former Cigarettes 0 12/01/1984 - 12/01/1994 Smokeless Tobacco: Never [...] lb 3.2 oz) 01/15/2019 8:08 A M FILTER TIP CATCHER Height 153.7 cm (5' 0.5) 01/15/2019 8:08 AM FILTER TIP CATCHER Body Mass Index 26.93 01/15/2019 8:08 AM FILTER TIP CATCHER Plan of Treatment Health Maintenance Due Date Last Done Comments HepA (3 of 3 - Hep A Twinrix risk 3-dose series) 06/14/2019 01/15/2019, 02/10/2012 Colonoscopy 12/18/2020 12/18/2015, 12/24/1995 Prediabetes: HGBA1C 09/01/2021 09/01/2020, 01/15/2019, 08/07/2018, Additional history exists Mammogram 10/19/2021 10/19/2020, 08/2019, 01/09/2018, Additional history exists Dexa 2022 Pneumococcal 65+ Yrs (1 - PCV) 2022 COVID-19 Vaccine (5 - season) 2023 09/26/2022, 12/13/2021, 03/06/2021, Additional history exists Medicare Annual Wellness Visit 12/01/2023 Influenza (Season Ended) 2024 021, 10/03/2020, 09/16/2019, Additional history exists DTaP/Tdap/Td (2 - Tdap) 08/11/2024 08/11/20 14, [...] Procedure Name Priority Date/Time Associated Diagnosis Comments MM MAMMOGRAM SCREENING BILAT W CAD Routine 10/19/2020 2:49 PM FILTER TIP CATCHER Visit for screening mammogram HGB A1C Routine 09/01/2020 1:34 PM CDT Pre-diabetes LIPID PANEL & DIRECT LDL (IF NEEDED) Routine 09/01/2020 1:34 PM CDT Hyperlipidemia, unspecified hyperlipidemia type HEPATITIS C ANTIBODY, WITH REFLEX Routine 11/06/2017 2:05 PM FILTER TIP CATCHER Numbness of toes ANATOMICAL PATH LIQUID BASED Routine 02/17/2017 10:00 AM CDT ENDOSCOPY, COLON, SCREENING/DIAGNOSTI C Routine 12/18/2015 10:10 AM FILTER TIP CATCHER Screening for colon cancer from Last 3 Months or Most Recently Relevant to Health Maintenance Results * MM Mammogram Screening Bilat W CAD (10/19/2020 2:49 PM FILTER TIP CATCHER) Anatomical Region Laterality Modality Breast Bilateral Mammography Impressions 10/19/2020 3:15 PM FILTER TIP CATCHER : ACR BI-RADS Category 1: Negative RECOMMENDATION: Follow Up Imaging in 12 months - Bilateral The results and recommendations of this examination will be communicated to the patient. Narrative 10/19/2020 3:15 PM FILTER TIP CATCHER MM MAMMOGRAM SCREENING BILAT W CAD performed on 10/19/20 Compared to: 04/08/2019 MM Mammogram Screening Bilat W CAD, 01/09/2018 MM Mammogram Screening Bilat W CAD, and 04/01/2016 MM Mammogram Screening Bilat W CAD ?? FINDINGS: Bilateral screening mammogram was performed with the assistance of Computer-Aided Detection . The breasts have scattered areas of fibroglandular density. There is no radiographic evidence of malignancy. ?? Nighat Ordonez PA-C RAD JOHN * (ABNORMAL) Lipid Panel and Direct LDL(If Needed) (09/01/2020 1:34 PM CDT) Cholesterol 213(H) 0 - 199 mg/dL 09/01/2020 2:35 PM CDT [facility] Triglyceride 312(H) <=149 mg/dL 09/01/2020 2:35 PM CDT [facility] HDL Cholesterol 44 >=40 mg/dL 0 2:35 PM CDT [facility] LDL, Calculated 107 <130 mg/dL 0 2:35 PM CDT [facility] Non HDL Chol, Calculated 169 mg/dL 09/01/2020 2:35 PM CDT [facility] Cholesterol/HDL Ratio 4.8 09/01/2020 2:35 PM CDT [facility] Hours Fasting 12 09/01/2020 2:35 PM CDT [facility] Blood Venipuncture / Unknown 09/01/2020 1:34 PM CDT 09/01/2020 1:46 PM CDT Nighat Ordonez PA-C LAB_1 Performing Organization Address City/[facility]/ZIP Co de Phone Number [facility] [address] [place] [address], [facility] [phone] * Hgb A1C (09/01/2020 1:34 PM CDT) Hemoglobin A1C 5.5 <=5.6 % 09/02/2020 10:50 AM CDT [facility] Blood Venipuncture / Unknown 09/01/2020 1:34 PM CDT 09/01/2020 1:46 PM CDT Nighat Ordonez PA-C LAB_1 Performing Organization Address [facility] Co de Phone Number [facility] [address] [address], [facility] [phone] * Hepatitis C Antibody, with Reflex (11/06/2017 2:05 PM FILTER TIP CATCHER) Hepatitis C Antibody Nonreactive Nonreactive PN SOFT 11/06/2017 2:05 PM FILTER TIP CATCHER 11/06/2017 7:00 PM FILTER TIP CATCHER Narrative PN SOFT - 11/06/2017 8:01 PM FILTER TIP CATCHER Performed at [facility], [address] [place] [id number] CLIA number [id number] Nighat Ordonez PA-C LAB_1 Performing Organization Address [facility] Co de Phone Number PN SOFT [address] [place] [id number] * Pap Smear (02/17/2017 10:00 AM CDT) 02/17/2017 10:0 0 AM CDT Narrative PN SOFT - 02/24/2017 3:43 PM CDT FINAL GYNECOLOGICAL CYTOLOGY REPORT Pathology #: [id number] ?Date Obtained: 02/17/2017 ? Date Received: 02/18/2017 INTERPRETATION/RESULTS: Negative for Intraepithelial Lesion or Malignancy. SPECIMEN ADEQUACY: Satisfactory for Evaluation. ??Endocervical cells/transformation zone component present. Verified on 02/24/2017 ??by DEBORAH NOE (electronic signature) CLINICAL NOTES: ?Abnormal bleeding: No, LMP: postmenopausal, Menstrual status: ?None Apply, Current form of therapy: None apply LIQUID BASED PAP SMEAR SPECIMEN TYPE: ?ROUTINE CERVICAL PAP TEST PLEASE NOTE: The pap smear is a screening test designed to aid in the detection of cervical cancer and its precursor lesions. It is not a diagnostic procedure and should not be used as the sole means of detecting cervical cancer. Both false-positive and false-negative reports may occur. [place] [address] Nighat Ordonez PA-C LAB_1 RAJENDRA HATFIELD [facility] [place], [place] [address] * Endoscopy, colon, diagnostic (12/18/2015 10:10 AM FILTER TIP CATCHER) 12/18/2015 10:1 0 AM FILTER TIP CATCHER Narrative PN PROVATION - 12/18/2015 10:10 AM FILTER TIP CATCHER Patient Name: Laverne Wakefield Procedure Date: 12/18/2015 10:10 AM Date of : 1955 Admit Type: Outpatient Age: 60 Gender: Female Note Status: Finalized Attending MD: Seema Barrera MD Procedure: ? Colonoscopy Indications: ? High risk colon cancer surveillance: ? Personal history of colonic polyps Providers: ? Seema Barrera MD, Jacquelyn Looney, ? RN Referring MD: ?Rodolfo Pickett NP Medicines: ? Midazolam 5 mg IV, Fentanyl 125 ? micrograms IV, Diphenhydramine 25 mg ? IV, Oxygen 2l/min per nasal cannula Complications: ? No immediate complications. Procedure: ? After I obtained informed consent, ? the scope was passed under direct ? vision. Throughout the procedure, the ? patient's blood pressure, pulse, and ? oxygen saturations were monitored ? continuously. The [id number] was ? introduced through the anus and ? advanced to the cecum, identified by ? appendiceal orifice and ileocecal ? valve. The colonoscopy was somewhat ? difficult due to the patient's ? discomfort during the procedure. ? Successful completion of the ? procedure was aided by increasing the ? dose of sedation medication and ? changing the patient to a prone ? position. The patient tolerated the ? procedure. The quality of the bowel ? preparation was good except the ? ascending colon and cecum were fair. ? (patient did not do split prep, she ? took all of the prep at once last ? night) Findings: ? The perianal and digital rectal examinations were ? normal. ? Two sessile polyps were found in the sigmoid colon ? and in the ascending colon. The polyps were 1 to 2 mm ? in size. These polyps were removed with a cold biopsy ? forceps. Resection and retrieval were complete. ? The exam was otherwise without abnormality on direct ? and retroflexion views. Impression: ?- Two 1 to 2 mm polyps in the sigmoid ? colon and in the ascending colon. ? Resected and retrieved. ? - The examination was otherwise ? normal on direct and retroflexion ? views. Recommendation: ?- Await pathology results. ? - Discharge patient to home. ? - Repeat colonoscopy for surveillance ? based on pathology results. She ? should do split prep dosing. ? Recommend MAC for future ? colonoscopies. ? - No aspirin, ibuprofen, naproxen, or ? other non-steroidal anti-inflammatory ? drugs for 7 days after polyp removal. Procedure Code(s): ?? --- Professional --- ? 73576, Colonoscopy, flexible; with ? biopsy, single or multiple Diagnosis Code(s): ?? --- Professional --- ? Z86.010, Personal history of colonic ? polyps ? D12.5, Benign neoplasm of sigmoid ? colon ? D12.2, Benign neoplasm of ascending ? colon CPT copyright 2014 [employer]. All rights reserved. The codes documented in this report are preliminary and upon bronzer review may be revised to meet current compliance requirements. Seema Barrera MD 12/18/2015 11:17 AM This document has been electronically signed. Number of Addenda: 0 Note Initiated On: 12/18/2015 10:10 AM ? Endoscopy Report Rodolfo W Nieves BOLT MACHINE OPERATOR, YIELD ENGINEER PN GI PROCED URE ORDERABLES PN PROVATION from Last 3 Months or Most Recently Relevant to Health Maintenance Care Teams Precision Millwright Relationship Specialty Start Date End Date Needs Pcp, [place] [address] PCP - General 06/20/23
--- OUTSIDE RECORDS SUMMARY | 2024-04-20 09:13 | XMS_ITS | Clinical Summary ---
Author Name Unknown Organization [employer] [facility] [employer] Address [place], [place] [address] Care Team Providers Care Perfume Maker Name Role Phone Annette Wakefield Primary Care Provider [phone] Allergies No known active allergies Medications Medication Sig Dispensed Refills Start Date End Date Status guaiFENesin (Mucinex) 600 mg Extended-Release tabletIndications:C ough Take 1 Tablet (600 mg) by mouth 2 times daily if needed for Expectoration. 60 Tablet 1 12/13/2021 Active nystatin-triamcinol one (MYCOLOG) creamIndications:Va ginal irritation APPLY CREAM EXTERNALLY TO AFFECTED AREA TWICE DAILY TO LABIA AND RECTAL AREA 60 g 04/09/2022 Active diclofenac topical (VOLTAREN) 1 % gelIndications:Arth ralgia, unspecified joint Apply 4 g topically to affected area(s) 4 times daily. 450 g 1 04/19/2022 Active triamcinolone (ARISTOCORT) 0.1 % ointmentIndications :Acute eczema Apply topically to affected area(s) two times daily. 80 g 1 07/30/2022 Active fluocinonide 0.05% topical (LIDEX) 0.05 % creamIndications:Ra sh Apply topically to affected area(s) two times daily. 60 g 1 09/26/2022 Active Calcium-Cholecalcif arielle, D3, 600 mg-10 mcg (400 unit) capIndications:Belinda min D deficiency Take 1 Tablet by mouth once daily. 90 Capsule 3 12/31/2022 Active ondansetron (ZOFRAN ODT) 4 mg disintegrating tabletIndications:N ausea and vomiting, unspecified vomiting type Place 1 Tablet (4 mg) on the tongue every 8 hours if needed for Nausea/Vomiting. 30 Tablet 03/04/2023 Active cyclobenzaprine (FLEXERIL) 10 mg tabletIndications:C hronic bilateral low back pain, unspecified whether sciatica present Take 1 Tablet (10 mg) by mouth 3 times daily if needed for Muscle Spasm. 60 Tablet 2 09/30/2023 Active atorvastatin (LIPITOR) 20 mg tabletIndications:M ixed hyperlipidemia Take 1 Tablet (20 mg) by mouth once daily. 90 Tablet 3 09/30/2023 Active buPROPion (WELLBUTRIN XL) 300 mg Extended-Release tabletIndications:D epression, unspecified depression type Take 1 Tablet (300 mg) by mouth once daily. 90 Tablet 3 09/30/2023 Active gabapentin (NEURONTIN) 300 mg capsuleIndications: Other polyneuropathy Take 2 Capsules (600 mg) by mouth three times daily. 540 Capsule 3 09/30/2023 Active levothyroxine (SYNTHROID) 75 mcg tabletIndications:T hyroid disorder Take 1 Tablet (75 mcg) by mouth before breakfast. 90 Tablet 3 09/30/2023 Active lisinopril-hydrochl orothiazide 20-12.5 mg tablet (PRINZIDE)Indicatio ns:HTN (hypertension) Take 1 Tablet by mouth once daily. 90 Tablet 3 09/30/2023 Active omeprazole (PRILOSEC) 20 mg Delayed-Release capsuleIndications: Diaphragmatic hernia without obstruction and without gangrene Take 1 Capsule (20 mg) by mouth once daily if needed for GI Upset. 90 Capsule 3 09/30/2023 Active traZODone (DESYREL) 150 mg tabletIndications:P rimary insomnia Take 2 Tablets (300 mg) by mouth at bedtime. 180 Tablet 3 09/30/2023 Active LORazepam (ATIVAN) 0.5 mg tabIndications:DAVID (generalized anxiety disorder) Take 1 Tablet (0.5 mg) by mouth once daily if needed for Anxiety. 30 Tablet 2 12/02/2023 Active folic acid 1 mg tabletIndications:F olic acid deficiency Take 1 Tablet (1 mg) by mouth once daily. 90 Tablet 1 01/12/2024 Active HYDROcodone-acetami nophen (5-325 mg/tablet)Indicatio ns:DDD (degenerative disc disease), lumbar,Lumbar radiculopathy,Lumba r facet arthropathy,Stenosi s of lateral recess of lumbar spine Take 1 Tablet by mouth 3 times daily if needed for Pain. Max acetaminophen dose: 4000 mg in 24 hrs. 24 Tablet 01/29/2024 Active fluticasone (50 mcg per actuation) nasal solution (FLONASE)Indication s:Dysfunction of Eustachian tube, unspecified laterality Inhale 2 Sprays to both nostrils once daily. 16 g 01/29/2024 Active ketoconazole 2% topical (NIZORAL) creamIndications:Ti alicia corporis Apply topically to affected area(s) two times daily. 60 g 1 03/11/2024 Active metoprolol tartrate (LOPRESSOR) 100 mg tabletIndications:H ypertension, unspecified type Take 1 Tablet (100 mg) by mouth two times daily. 180 Tablet 3 03/11/2024 Active LORazepam (ATIVAN) 0.5 mg tabIndications:DAVID (generalized anxiety disorder) Take 1 Tablet (0.5 mg) by mouth every 6 hours if needed for Anxiety. 30 Tablet 2 04/05/2024 Active ketoconazole (NIZORAL) 200 mg tabletIndications:T inea corporis Take 1 Tablet (200 mg) by mouth once daily for 5 days. 5 Tablet 04/03/2024 04/08/20 24 Active Problems Problem Noted Date Diagnosed Date Osteopenia of multiple sites 11/25/2023 Depression, recurrent 10/02/2023 Trigger finger of left thumb 07/30/2022 Pap smear for cervical cancer screening 03/14/20 22 Overview: Plan: Routine Screening Bilateral sensorineural hearing [...] agreement signed/tramdol , 20 [facility] a [facility] Elevated liver enzymes 06/09/201003/14 Thyroid disorder 10/23/2009 03/14/2022 Closed fracture of unspecifi ed part of humerus 08/17/2008 03/14/2022 Disturbance in sleep behavior 04/12/2003 03/14/2022 Encounters Date Type Department Care Team Description 04/12/2024 Refill [facility] [address] [place] [address] Annette Wakefield PA Refill Request (Ketoconazole 2% Topical) 04/12/2024 Telephone [facility] [address] [place] [address] Annette Wakefield PA Refill Request (ketoconazole 2% topical (NIZORAL) cream. ) 04/03/2024 9:15 AM CDT Office Visit [facility] [address] [facility] [address] [place] [id number] Jennifer Carballo MD Ring worm follow-up 04/03/2024 Travel 04/03/[address] [address] Annette Wakefield PA Refill Request (Lorazepam) 04/02/2024 Nurse Triage [address] [address] Annette Wakefield PA Derm Problem 04/01/2024 Telephone [facility] [address] [facility] [address] [place] [address] Center, [facility] Appointment 03/30/[address] [address] Annette Wakefield PA Medication Management 03/25/[address] [address] Annette Wakefield PA Questions (Possible [place] ) 03/15/[address] [address] Onesimo Madrid MD Questions (INJECTION) 03/11/2024 1:30 PM CDT Office Visit [facility] [address] [place] [address] Annette Wakefield PA Edema (Swelling in feet and ankles); Derm Problem (Pt states she has ringworm-large area on right foot and now all over body) 03/11/2024 Travel 03/05/2024 Telephone [facility] [address] [place] [address] Onesimo Madrid MD Results (MRI) 03/04/2024 8:45 AM CDT Office Visit [facility] [address] [place] [address] Anna Bauman PA Thyroid Problem 03/04/2024 Travel 02/28/2024 11:15 AM CDT Ancillary Procedure [facility] [address] [place] [phone] 02/28/2024 Travel 01/30/2024 Telephone [facility] [address] [place] [address] Onesimo Madrid MD Medication Management 01/30/2024 Telephone [facility] [address] [place] [address] Onesimo Madrid MD Medication Management 01/29/2024 10:50 AM INGREDIENT MIXER Office Visit [facility] [address] [place] [address] Lynn Olmedo DO Infection (R ear, has been ongoing for over a month. still having pain. had a course of amoxicillin and augmentin. Has history of kidney failure with antibiotics. ); Leg Swelling (bilateral ankle swelling, has not tried compression stockings, does not get relief when elevating feet. new onset for 2 weeks. ) 01/29/2024 10:00 AM INGREDIENT MIXER Office Visit [facility] [address] [place] [address] Onesimo Madrid MD Musculoskeletal Problem (Follow up back pain, CHRISTEL on 12/16/23) 01/29/2024 Travel from Last 3 Months Immunizations Name Administration Dates Next Due COVID-19 Vaccine Spikevax (M oderna 50mcg/0.5mL) 12YO+ 3365-5468 Formula PF 09/30/2023 COVID-19 vaccine (FAZUA NTech 30mcg/0.3mL) 12YO+ BIVALENT PF, MDV 09/26/2022 COVID-19 vaccine ([employer] NTech 30mcg/0.3mL) PF, MDV 12/13/2021,03/06/2021,02/13/2021 HepA-HepB (Twinrix) [...] kidney Cancer-ovarian Daughter Heart Disease Maternal Aunt [place] Lung cancer Mother Heart Disease Paternal Grandfather [place] Heart Disease Paternal Grandmother [place] Diabetes Paternal Uncle Alcohol/Drug Sister 1 alcohol [...] ago Alcohol Use Standard Drinks/Week Comments Yes 21 (1 standard drink = 0.6 oz pu re alcohol) PHQ-2 Answer Date Recorded PHQ-2 TOTAL SCORE 1 09/30/2023 Social Connections Answer Date Recorded Frequency of Communication with Friends and Fami ly 0 03/04/2024 Financial Resource Strain Answer Date R ecorded Difficulty of Paying Living Expenses 3 03/04/2024 Difficulty of Paying Living Expenses Not on file 03/04/2024 Food Insecurity Answer Date Recorded Worried About Running Out of Food in the Last Ye ar 1 03/04/2024 Transportation Needs Answer Date Record ed Lack of Transportation (Medical) 1 03/04/2024 Housing Stability Answer Date Recorded Unable to Pay for Housing in the Last Year 1 03/04/2024 Sex and Gender Information Value Date Recorded [...] Sign Reading Time Taken Comments Blood Pressure 127/81 04/03/2024 9:19 AM CDT Pulse 68 04/03/2024 9:19 AM CDT Temperature 37.2 ??C (98.9 ??F) 04/03/2024 9:19 AM CD T Respiratory Rate 16 04/03/2024 9:19 AM CDT Oxygen Saturation 96% 04/03/2024 9:19 AM CDT Inhaled Oxygen Concentration - - Weight 68 kg (150 lb) 03/11/2024 1:31 PM CDT Height 154.9 cm (5' 1) 01/13/2024 10:57 AM INGREDIENT MIXER Body Mass Index 28.34 01/13/2024 10:57 AM INGREDIENT MIXER Plan of Treatment Upcoming Encounters Date Type Department Care Team (Late st Contact Info) Description 04/20/2024 9:40 AM CDT Office Visit [facility] [address] [place] [address] Onesimo Madrid MD [address] [place] [address] Arrived Health Maintenance Due Date Last Done Comments Pneumococcal series for age 65+ (1 of 2 - PCV) 1961 Influenza for age 65+ 08/01/2024 09/30/2023 , 10/19/2021, 10/03/2020, Additional history exists Tetanus booster 08/11/2024 08/11/2014, 04/03/2006, 01/14/2005, Additional history exists Medicare Wellness for age 65+ 09/30/2024 09/30/2023 Depression screening for age 12+ 10/01/2024 10/01/2023, 09/30/2023, 03/14/2022 Mammogram for age 45-75 11/11/2024 11/11/20, 04/15/2022, 10/19/2020 (Completed outside of [facility]), Additional history exists BMI (ht and wt on same day) for age 18+ 01/13/2025 01/13/2024, 09/30/2023, 01/21/2023, Additional history exists Lipids for age 45-75 09/30/2028 09/30/2023, 09/30/2023, 03/14/2022, Additional history exists Colonoscopy through age 75 02/27/203102/27, 12/18/2015 (Completed outside of [facility]) Hepatitis C screening for ag e 18-79 Completed 10/23/2011, 10/19/2009 Tdap Completed 08/11/2014 Zoster (shingles) series for age 50+ Completed 02/08/2022, 10/19/2021, 01/16/2016 COVID-19 vaccine series Completed 09/30/20, 09/26/2022, 12/13/2021, Additional history exists DEXA/DXA scan for age 65+ Completed 11/11/2023 Medical Devices Implanted Type Area Rn Emergency Device Identifier Shelf Expiration Date Model / Serial / Lot Comprehensive Foot System 2.4mm Low Profile Plates, Straight 5 Holes Implanted:Qty: 2 on 12/27/2019 by Domo Barnes DPM at [facility] Left: Toe [employer] [id number] - 05 / / Description:2ND AND 3RD TOES Comprehensive Foot System 2.4mm Low Profile Screws, Lockin, Cortex Implanted:Qty: 4 on 12/27/2019 by Domo Barnes DPM at [facility] Left: Toe [employer] [id number] 2 / / Description:3RD TOE x 2 2ND TOE x 2 Comprehensive Foot System 2.4mm Low Profile Screws, Lockin, Cortex Implanted:Qty: 4 on 12/27/2019 by Domo Barnes DPM at [facility] Left: Toe [employer] [id number] 4 / / Description:3RD TOE x 2 2ND TOE x 2 Procedures Procedure Name Priority Date/Time Associated Diagnosis Comments AMB EPIDURAL STEROID INJECTION Routine 04/20/2024 7:59 AM CDT Lumbar radiculopathy Lumbar facet arthropathy Lumbar disc herniation HEMOGLOBIN A1C SCREENING Routine 03/04/2024 9:25 AM CDT Screening for diabetes mellitus Hyperglycemia COMP METABOLIC PANEL Routine 03/04/2024 9:25 AM CDT Bilateral lower extremity edema PRO-BNP Routine 03/04/2024 9:25 AM CDT Bilateral lower extremity edema ALCARAZ (dyspnea on exertion) TSH WITH REFLEX Routine 03/04/2024 9:25 AM CDT Bilateral lower extremity edema TSH Routine 03/04/2024 9:25 AM CDT Hypothyroidism, unspecified type MR SPINE LUMBAR WO Routine 02/28/2024 12 :02 PM CDT DDD (degenerative disc disease), lumbar Lumbar radiculopathy Lumbar facet arthropathy Stenosis of lateral recess of lumbar spine PRO-BNP Routine 01/29/2024 12:11 PM INGREDIENT MIXER Bilateral lower extremity edema ALCARAZ (dyspnea on exertion) MAGNESIUM Routine 01/29/2024 12:11 PM INGREDIENT MIXER Bilateral lower extremity edema BASIC METABOLIC PANEL Routine 01/29/2024 12:11 PM INGREDIENT MIXER Bilateral lower extremity edema XR MAMMO BILAT SCREENING Routine 11/11/2023 4:10 PM INGREDIENT MIXER Encounter for screening mammogram for malignant neoplasm of breast XR DXA BONE DENSITY 2 SITES AXIAL Routine 11/11/2023 3:43 PM INGREDIENT MIXER Postmenopausal LIPID PANEL W REFLEX MEASURED LDL Routine 09/30/2023 4:21 PM CDT Mixed hyperlipidemia COLONOSCOPY 02/27/2021 8:38 AM CDT ANTI HCV Add On 10/23/2011 3:28 PM INGREDIENT MIXER Elevated liver enzymes Hepatomegaly from Last 3 Months or Most Recently Relevant to Health Maintenance Results * HEMOGLOBIN A1C SCREENING (03/04/2024 9:25 AM CDT) HEMOGLOBIN A1C SCREENING 5.4 <=6.4 % 03/04/2024 5:21 PM CDT [facility] Blood BLOOD SPECIMEN / Unknown Venipuncture / Unknown 03/04/2024 9:25 AM CDT 03/04/2024 9:25 AM CDT Narrative [facility] - 03/04/2024 5:21 PM CDT ? (<5.7%) ?Normal ? (5.7% to 6.4%) ? Indicates prediabetes ? (>=6.5%) ? Confirms diabetes Falsely low levels may be seen with: Recent Transfusion, Recent Significant Blood Loss, Hemolytic Diseases, or Falsely elevated levels may be seen with: Untreated Anemias, Splenectomy Anna CORBIN CHEMISTRY Performing Organization Address City/[facility]/ZIP Co de Phone Number [facility] [address] [place] [address], * TSH WITH REFLEX (03/04/2024 9:25 AM CDT) TSH 3.07 0.27 - 4.20 uIU/mL 03/04/2024 6:53 PM CDT [facility] Blood BLOOD SPECIMEN / Unknown Venipuncture / Unknown 03/04/2024 9:25 AM CDT 03/04/2024 9:25 AM CDT Narrative [facility] - 03/04/2024 6:53 PM CDT In Adults, TSH values between 5.00 and 10.00 uIU/ml do not necessarily indicate the presence of Hypothyroidism. Correlation with clinical findings such as presence of goiter and/or Thyroperoxidase (TPO) Antibody may be helpful. For more information please refer to BOY 2004; 291: 228-238. Anna CORBIN CHEMISTRY Performing Organization Address City/[facility]/ZIP Co de Phone Number [facility] [address] [place] [address], * TSH (03/04/2024 9:25 AM CDT) TSH 3.07 0.27 - 4.20 uIU/mL 03/04/2024 6:53 PM CDT [facility] Blood BLOOD SPECIMEN / Unknown Venipuncture / Unknown 03/04/2024 9:25 AM CDT 03/04/2024 9:25 AM CDT Narrative [facility] - 03/04/2024 6:53 PM CDT In Adults, TSH values between 5.00 and 10.00 uIU/ml do not necessarily indicate the presence of Hypothyroidism. Correlation with clinical findings such as presence of goiter and/or Thyroperoxidase (TPO) Antibody may be helpful. For more information please refer to BOY 2004; 291: 228-238. Blanquita Peter MD CHEMISTRY Performing Organization Address [facility] Co de Phone Number [facility] [address] [place] [address], * (ABNORMAL) PRO-BNP (03/04/2024 9:25 AM CDT) Only the most recent of2 resultswithin the time period is included. PRO-BNP 167(H) <125 pg/mL 03/04/2024 6:54 PM CDT [facility] [employer] [facility] Blood BLOOD SPECIMEN / Unknown Venipuncture / Unknown 03/04/2024 9:25 AM CDT 03/04/2024 9:25 AM CDT Narrative [facility] - 03/04/2024 6:54 PM CDT The following cut-points have been suggested for the use of proBNP for the diagnostic evaluation of heart failure (HF) in patient with acute dyspnea. Patients with eGFR >= 60 Diagnosis (rule in CHF) ? <50 Years Old ?450 pg/mL 50 - 75 Years Old ?900 pg/mL >75 Years Old ? 1800 pg/mL Exclusion (rule out CHF) Age Independent ?300 pg/mL A cutoff of 1200 pg/mL for patients with an eGFR <60 yields a diagnostic sensitivity of 89% and specificity of 72% for acute congestive heart failure. ? Anna CORBIN SEND OUTS Performing Organization Address [facility]/State/ZIP Co de Phone Number [facility] [address] [place] [address], * (ABNORMAL) COMP METABOLIC PANEL (03/04/2024 9:25 AM CDT) SODIUM 136 136 - 145 mmol/L 03/04/2024 6:53 PM CDT [facility] POTASSIUM 4.2 3.5 - 5.1 mmol/L 03/04/2024 6:53 PM CDT [facility] CHLORIDE 100 98 - 107 mmol/L 03/04/2024 6:53 PM CDT [facility] CO2,TOTAL 23 22 - 29 mmol/L 03/04/2024 6:53 PM CDT [facility] ANION GAP 13 5 - 18 03/04/2024 6:53 PM CDT [facility] GLUCOSE 116(H) 70 - 99 mg/dL 03/04/2024 6:53 PM CDT [facility] CALCIUM 9.6 8.8 - 10.2 mg/dL 03/04/2024 6:53 PM CDT [facility] BUN 15 8 - 23 mg/dL 03/04/2024 6:53 PM T [facility] CREATININE 0.87 0.50 - 0.90 mg/dL 03/04/2024 6:53 PM CDT [facility] BUN/CREAT RATIO 17 10 - 20 6:53 PM T [facility] eGFR 74(L) >90 mL/min/1.7 3m2 03/04/2024 6:53 PM T [facility] Comment:As of 2022, eG FR is calculated by the CKD-EPI creatinine equation without race adjustment. ??eGFR can be influenced by muscle mass, exercise, and diet. ??The reported eGFR is an estimation only and is only applicable if the renal function is stable. ALBUMIN 4.6 4.0 - 4.9 g/dL 03/04/2024 6:53 PM CDT [facility] PROTEIN,TOTAL 7.5 6.0 - 8.0 g/dL 03/04/2024 6:53 PM CDT [facility] BILIRUBIN,TOTAL 0.3 0.0 - 1.2 mg/dL 03/04/2024 6:53 PM CDT [facility] ALK PHOSPHATASE 86 35 - 104 IU/L 03/04/2024 6:53 PM CDT [facility] ALT (SGPT) 31 10 - 35 IU/L 03/04/2024 6:53 PM CDT [facility] AST (SGOT) 24 10 - 35 IU/L 03/04/2024 6:53 PM CDT [facility] Blood BLOOD SPECIMEN / Unknown Venipuncture / Unknown 03/04/2024 9:25 AM CDT 03/04/2024 9:25 AM CDT Anna CORBIN CHEMISTRY [facility] [address] [place] [address], * MR SPINE LUMBAR WO (02/28/2024 12:02 PM CDT) Anatomical Region Laterality Modality Spine, LUMBAR SPINE Magnetic Res onance 02/28/2024 12:0 2 PM CDT Impressions 02/29/2024 10:57 AM CDT 1. ??Right L3-L4 foraminal protrusion with contact of the exiting right L3 nerve root, new since 2021. Correlate for left L3 radiculopathy. 2. ??Advanced right L3-L4 facet arthropathy with interval development of marrow edema in the pedicles and reactive dorsal paraspinal soft tissue inflammation. This could be a pain generator in the appropriate clinical setting. 3. ??Remaining lumbar degenerative findings without high-grade canal or foraminal stenosis are similar in appearance compared to 2021. Narrative 02/29/2024 10:57 AM CDT For Patients: As a result of the Century Cures Act, medical imaging exams and procedure reports are released immediately into your electronic medical record. You may view this report before your referring provider. If you have questions, please contact your health care provider. EXAM: MR SPINE LUMBAR WO LOCATION: [place] DATE: 02/28/2024 INDICATION: Ddd (degenerative Disc Disease), Lumbar Lumbar Radiculopathy Lumbar Facet Arthropathy Stenosis Of Lateral Recess Of Lumbar Spine COMPARISON: ??MRI lumbar spine 06/05/2022. TECHNIQUE: Routine Lumbar Spine MRI without IV contrast. FINDINGS: Nomenclature is based on 5 lumbar type vertebral bodies with L5-S1 defined on image 48 of series 5. Minimal degenerative anterolisthesis of L3 on L4 and L4-L5. Vertebral body heights maintained. ??Edema in the right L3 and L4 pedicles. Otherwise, no suspicious marrow signal. Normal distal spinal cord and cauda equina with conus medullaris at L1-L2. Dorsal paraspinal and left psoas muscular atrophy. Mild reactive edema along the posterior aspect of the right L4-L5 facet. Visualized intra-abdominal structures are unremarkable. T12-L1: Unremarkable appearance of the disc. Mild bilateral facet arthropathy. No significant canal or foraminal stenosis. L1-L2: Unremarkable appearance of the disc. Mild bilateral facet arthropathy. No significant canal or foraminal stenosis. L2-L3: Unremarkable appearance of the disc. Mild to moderate bilateral facet arthropathy. No significant canal or foraminal stenosis. L3-L4: Anterolisthesis with uncovering of the disc. Right foraminal protrusion with contact of the exiting right L3 nerve root, new since prior. Mild disc height loss. Severe bilateral facet arthropathy and ligamentum flavum hypertrophy. Trace right synovial cyst (series 5, image 30). Mild canal stenosis. Mild right foraminal stenosis, mildly progressed. L4-L5: Anterolisthesis with uncovering of the disc. Mild disc height loss. Severe bilateral facet arthropathy with ligamentum flavum hypertrophy. No significant canal or foraminal stenosis. L5-S1: Minimal bulge. Mild disc height loss. Severe bilateral facet arthropathy. No significant canal or foraminal stenosis. Procedure Note Jayden Villasenor MD - 02/29/2024 For Patients: As a result of the Century Cures Act, medical imagingexams and procedure reports are released immediately into your electronicmedical record. You may view this report before your referring provider.If you have questions, please contact your health care provider. EXAM: MR SPINE LUMBAR WO [facility] [place] [facility]: 02/28[facility] INDICATION: Ddd (degenerative Disc Disease), Lumbar Lumbar RadiculopathyLumbar Facet Arthropathy Stenosis Of Lateral Recess Of Lumbar Spine COMPARISON: MRI lumbar spine 06/05/2022. TECHNIQUE: Routine Lumbar Spine MRI without IV contrast. FINDINGS: Nomenclature is based on 5 lumbar type vertebral bodies with L5-S1 definedon image 48 of series 5. Minimal degenerative anterolisthesis of L3 on L4and L4-L5. Vertebral body heights maintained. Edema in the right L3 andL4 pedicles. Otherwise, no suspicious marrow signal. Normal distal spinalcord and cauda equina with conus medullaris at L1-L2. Dorsal paraspinal and left psoas muscular atrophy. Mild reactive edemaalong the posterior aspect of the right L4-L5 facet. Visualizedintra-abdominal structures are unremarkable. T12-L1: Unremarkable appearance of the disc. Mild bilateral facetarthropathy. No significant canal or foraminal stenosis. L1-L2: Unremarkable appearance of the disc. Mild bilateral facetarthropathy. No significant canal or foraminal stenosis. L2-L3: Unremarkable appearance of the disc. Mild to moderate bilateralfacet arthropathy. No significant canal or foraminal stenosis. L3-L4: Anterolisthesis with uncovering of the disc. Right foraminalprotrusion with contact of the exiting right L3 nerve root, new sinceprior. Mild disc height loss. Severe bilateral facet arthropathy andligamentum flavum hypertrophy. Trace right synovial cyst (series 5, image30). Mild canal stenosis. Mild right foraminal stenosis, mildlyprogressed. L4-L5: Anterolisthesis with uncovering of the disc. Mild disc height loss.Severe bilateral facet arthropathy with ligamentum flavum hypertrophy. Nosignificant canal or foraminal stenosis. L5-S1: Minimal bulge. Mild disc height loss. Severe bilateral facetarthropathy. No significant canal or foraminal stenosis. IMPRESSION: 1. Right L3-L4 foraminal protrusion with contact of the exiting right [id number] root, new since 2021. Correlate for left L3 radiculopathy. 2. Advanced right L3-L4 facet arthropathy with interval development ofmarrow edema in the pedicles and reactive dorsal paraspinal soft tissueinflammation. This could be a pain generator in the appropriate clinicalsetting. 3. Remaining lumbar degenerative findings without high-grade canal orforaminal stenosis are similar in appearance compared to 202. Onesimo Madrid MD MR * MAGNESIUM (01/29/2024 12:11 PM INGREDIENT MIXER) MAGNESIUM 1.9 1.6 - 2.4 mg/dL 01/29/2024 9:09 PM INGREDIENT MIXER [facility] Blood BLOOD SPECIMEN / Unknown Venipuncture / Unknown 01/29/2024 12:11 PM INGREDIENT MIXER 01/29/2024 12:13 PM INGREDIENT MIXER Lynn Olmedo DO CHEMISTRY [facility] [address] [place] [address], * (ABNORMAL) BASIC METABOLIC PANEL (01/29/2024 12:11 PM INGREDIENT MIXER) SODIUM 137 136 - 145 mmol/L 01/29/2024 9:09 PM [facility] POTASSIUM 4.2 3.5 - 5.1 mmol/L 01/29/2024 9:09 PM [facility] CHLORIDE 100 98 - 107 mmol/L 01/29/2024 9:09 PM [facility] CO2,TOTAL 27 22 - 29 mmol/L 01/29/2024 9:09 PM INGREDIENT MIXER [facility] ANION GAP 10 5 - 18 01/29/2024 9:09 PM [facility] GLUCOSE 109(H) 70 - 99 mg/dL 01/29/2024 9:09 PM INGREDIENT MIXER [facility] CALCIUM 9.6 8.8 - 10.2 mg/dL 01/29/2024 9:09 PM [facility] BUN 16 8 - 23 mg/dL 01/29/2024 9:09 PM [facility] CREATININE 0.82 0.50 - 0.90 mg/dL 01/29/2024 9:09 PM INGREDIENT MIXER [facility] BUN/CREAT RATIO 20 10 - 20 9:09 PM INGREDIENT MIXER [facility] eGFR 79(L) >90 mL/min/1.7 3m2 01/29/2024 9:09 PM INGREDIENT MIXER [facility] Comment:As of 2022, eG FR is calculated by the CKD-EPI creatinine equation without race adjustment. ??eGFR can be influenced by muscle mass, exercise, and diet. ??The reported eGFR is an estimation only and is only applicable if the renal function is stable. Blood BLOOD SPECIMEN / Unknown Venipuncture / Unknown 01/29/2024 12:11 PM INGREDIENT MIXER 01/29/2024 12:13 PM INGREDIENT MIXER Lynn Olmedo DO [facility] [address] [place] [id number], * XR MAMMO BILAT SCREENING (11/11/2023 4:10 PM INGREDIENT MIXER) Anatomical Region Laterality Modality BREASTS, Breast Left, Breast Right Bilateral Mammography Impressions 11/12/2023 3:42 PM INGREDIENT MIXER ??There is no radiographic evidence for malignancy. ??Recommend annual mammograms. MAMMOGRAM ASSESSMENT: ??ACR 1 Negative PATIENTS: You will also receive a letter with your examination results in an easy to read format. ??If you have questions about your results, please contact your referring provider. Narrative 11/12/2023 3:42 PM INGREDIENT MIXER For Patients: As a result of the 21st Century Cures Act, medical imaging exams and procedure reports are released immediately into your electronic medical record. You may view this report before your referring provider. If you have questions, please contact your health care provider. XR MAMMO BILAT SCREENING [[id number]] CLINICAL HISTORY: ??This is an asymptomatic 68 y.o. patient. INDICATION FOR EXAM: Mammogram Screening. TECHNIQUE: CC & MLO views were obtained. ??This study was evaluated with the assistance of Computer-Aided Detection. COMPARISON FILM: Yes 04/15/22 [facility] 10/19/20 [facility] FINDINGS: ??The breasts have scattered areas of fibroglandular density. There are no dominant masses, suspicious micro calcifications or areas of architectural distortion. Annette CORBIN MAMMO * (ABNORMAL) XR DXA BONE DENSITY 2 SITES AXIAL (11/11/2023 3:43 PM INGREDIENT MIXER) Anatomical Region Laterality Modality Spine, HIPS, HIPL, HIPR Other Impressions 11/19/2023 7:30 AM INGREDIENT MIXER Osteopenia. RECOMMENDATIONS: The National Osteoporosis Foundation recommends [...] recommended in 3-5 years. Kasandra Ramirez PA-C [facility] 11/19/2023 Narrative 11/19/2023 7:30 AM INGREDIENT MIXER For Patients: Results are automatically released to your [facility] ([employer]) account once available, in compliance with federal regulations. This means that you may see your results before your provider has had a chance to review them. Please allow 2-3 business days for your provider to comment on the results. XR DXA Bone Mineral Density (BMD) EXAM LOCATION: [address] [address] PATIENT NAME: Ella Wakefield DATE OF : [...] two scanners are made by the same buyer intern. PROCEDURE: Dual-energy x-ray absorptiometry performed with routine [...] fracture: 2.0%. Annette CORBIN DEXA * (ABNORMAL) LIPID PANEL W REFLEX MEASURED LDL (09/30/2023 4:21 PM CDT) [facility] CHOLESTEROL,TOTAL 270(H) 100 - 199 mg/dL 10/01/2023 2:01 PM CDT [facility] Comment: Cholesterol, Total Reference Ranges Desirable <200 mg/dL Borderline 200-239 mg/dL High >=240 mg/dL TRIGLYCERIDES 470(H) <150 mg/dL 10/01/2023 2:01 PM CDT [facility] HDL CHOLESTEROL 76 >40 mg/dL 3 2:01 PM CDT [facility] NON-HDL CHOLESTEROL 194(H) <145 mg/dl 10/01/2023 2:01 PM CDT [facility] CHOL/HDL RATIO 3.55 <4.50 10/01/2023 2:01 PM CDT [facility] LDL CHOLESTEROL 3 2:01 PM CDT [facility] Comment:Invalid LDL when Tri g >400. VLDL CHOLESTEROL COMMENT 10/01/2023 2:01 PM CDT [facility] Comment:Unable to calculate VLDL. PROVIDER ORDERED STATUS RANDOM 10/01/2023 2:01 PM CDT [facility] Blood BLOOD SPECIMEN / Unknown Venipuncture / Unknown 09/30/2023 4:21 PM CDT 09/30/2023 4:22 PM CDT Annette CORBIN CHEMISTRY [facility] [address] [place] [address], * COLONOSCOPY (02/27/2021 8:38 AM CDT) 02/27/2021 8:38 AM CDT Narrative Transcriptions Angélica Llamas DO - 02/27/2021 12:30 PM CDT Patient Name: Ella Wakefield Procedure Date: 02/27/2021 Gender: Female Date of : 1955 Admit Type: Ambulatory Procedure: Colonoscopy Proceduralist: Angélica Llamas MD [facility] Indications/Pre-Op Diagnosis: High risk colon cancer surveillance:Personal history of colonic polyps, Last colonoscopy5 years ago Medications: Propofol per Anesthesia Procedure Description: The patient had risks, benefits and alternatives explained to andgave informed consent. The patient had a stable cardiopulmonary status and judged an adequate candidate for conscious sedation. The colonoscope was passed through the anus and advanced to thececum, identified by appendiceal orifice and ileocecal valve. Thecolonoscopy was performed without difficulty. The patient tolerated the procedure well. The quality of the bowel preparation was good. The ileocecal valve, appendiceal orifice, and rectum were photographed. Complications: No immediate complications. Estimated Blood Loss & Specimen: Estimated blood loss: none. Specimen collected - None Findings: Non-bleeding internal hemorrhoids were found during retroflexion. The hemorrhoids were Grade II (internal hemorrhoids that prolapse butreduce spontaneously). Impressions/Post-Op Diagnosis: - Non-bleeding internal hemorrhoids. - No specimens collected. Recommendation: - Discharge patient to home. - Patient has a contact number available for emergencies. The signsand symptoms of potential delayed complications were discussed with the patient. Return to normal activities tomorrow. Written discharge instructions were provided to the patient. - High fiber diet. - Continue present medications. - Repeat colonoscopy in 5 years for surveillance. Moderate Sedation: Moderate (conscious) sedation was personally administered by an anesthesia professional. The following parameters were monitored:oxygen saturation, heart rate, blood pressure, and response to care. Angélica Llamas MD 02/27/2021 12:30:26 PM This report has been signed electronically. Note Initiated On: 02/27/2021 8:38 AM Angélica Llamas DO PROCEDURE ORD * ANTI HCV (10/23/2011 3:28 PM INGREDIENT MIXER) ANTI HCV Non-reacti ve [facility] Blood specimen (specimen) BLOOD SPECIMEN / Unknown 10/23/2011 3:28 PM INGREDIENT MIXER 10/23/2011 3:27 PM INGREDIENT MIXER Ashley Horne MD SEND OUTS [facility] INTERNAL ZIP [id number] [address] from Last 3 Months or Most Recently Relevant to Health Maintenance Advance Directives * Full Code (Latest Code Status on File) Date Activated Date Inactivated Comments 02/27/2021 7:46 AM 02/27/2021 12:09 PM Question Answer Comments Code Status Discussion: Discussed * Full Code Date Activated Date Inactivated Comments 12/30/2019 7:36 PM 12/31/2019 1:03 PM Question Answer Comments Code Status Discussion: Discussed * Full Code Date Activated Date Inactivated Comments 12/27/2019 10:47 AM 12/28/2019 2:29 AM Question Answer Comments Code Status Discussion: Discussed * Full Code Date Activated Date Inactivated Comments 12/27/2019 10:47 AM 12/27/2019 10:47 AM Question Answer Comments Code Status Discussion: Discussed * Full Code Date Activated Date Inactivated Comments 12/12/2019 6:50 PM 12/13/2019 4:20 PM Question Answer Comments Code Status Discussion: Not Discussed Care Teams Perfume Maker Relationship Specialty Start Date End Date Annette Wakefield PA [address] [place] [address] PCP - General Physician Cardiac Care Unit Nurse 09/04/23
--- OUTSIDE RECORDS SUMMARY | 2024-04-20 09:13 | XMS_ITS | Clinical Summary ---
Author Name Unknown Organization [facility] Address [address], [place] [address] Phone Care Team Providers Care Area Director Of Home Health Sales Name Role Phone Rodolfo Pickett NP Primary Care Provider [phone] Medications Medication Sig Dispensed Refills Start Date End Date Status levothyroxine (SYNTHROID, LEVOTHROID) 75 MCG tablet 1 po qday 08/15/2015 Active omeprazole (PriLOSEC) [address] capsule 1 po qoday 0 08/15/2015 Active Vancomycin HCl (VANCOMYCIN+SYRSPEND SF PH4) 50 MG/ML suspension 5mL po 4x daily for 7 days 08/15/2015 Active LORazepam (ATIVAN) 0.5 MG tablet 1 tab q6h prn 08/15/2015 Active Thiamine HCl (VITAMIN B-1) 50 MG tablet 1 po qday 08/15/2015 Active lisinopril-hydroCHLOROt hiazide (PRINZIDE,ZESTORETIC) 20-25 MG per tablet 1 tab once daily 3 02/01/2016 Active cyclobenzaprine (FLEXERIL) 10 MG tablet 1 tab tid prn 08/15/2015 Active citalopram (CeleXA) 20 MG tablet 1 po qday 08/15/2015 Active calcium carbonate-vitamin D (CALCIUM 600+D) 600-400 MG-UNIT per tablet 1 po qday 08/15/2015 Active Active Problems Problem Noted Date [...] [employer] INSURANCE - OPEN 2015-11/30 [address] [address] [place] [address] Care Teams Area Director Of Home Health Sales Relationship Specialty [place] [id number] [place] [address] PCP - General 07/25/21
== END 2024-04-20 09:08 | disposition home or self-care (01) ==
LOC: INJ CL 09:07
PROVIDERS: PCP Physician Assistant; Visit Provider Family Medicine
DX: M54.16 Radiculopathy, lumbar region (principal); M51.36 Other intervertebral disc degeneration, lumbar region
CPT/HCPCS: 64483; J1100; Q9966